=== PATIENT | female | born 1950 ===

== ENCOUNTER 2020-09-08 08:08 | Inpatient (IN) | payer MEDICARE ==
[~2020-09-08] VITALS: Ht 160 cm; Wt 53.5 kg
[2020-09-08] VITALS (19 sets, daily range): BP systolic 86–134; BP diastolic 50–88
--- NOTE | 2020-09-08 09:36 | NUR ---
ARRIVAL PT ARRIVED TO ROOM 314 VIA BED, NO S/S OF DISTRESS NOTED. AT BEDSIDE. REPORT RECEIVED FROM NICOLE LOWE. ASSUMED CARE OF PT.
[2020-09-08] MEDS ORDERED: MORPHINE SULFATE IV PRN ×2 (10:30→16:30)
[2020-09-08] MEDS ORDERED: VENTOLIN IH PRN (10:30)
[2020-09-08] MEDS ORDERED: NORCO 5MG PO PRN (10:30)
[2020-09-08] MEDS ORDERED: ATROVENT IH PRN (10:30)
--- NOTE | 2020-09-08 10:52 | PCM.HP ---
History of Present Illness Reason for Visit: Hip fracture History of Present Illness 70-year-old female with past medical history of asthma, delusional disorder is being transferred from [facility] unit she fell. Imaging studies showed hip fracture. Patient is not on any blood thinners. No head trauma. Patient transferred to medical/surgical floor. Orthopedic been consulted. Patient denies chest pain, abdominal pain, nausea vomiting. Past Medical History Pulmonary: Asthma Psychiatric: Other (Delusional disorder) Past Surgical History: No pertinent hx Past Social History Smoke: No Alcohol: none Travel Hx EBOLA RISK:Travel to/contact w: No Review of Systems Constitutional: No: Fever, Chills Eyes: No: Pain, Vision change ENT: No: Ear pain, Ear discharge Respiratory: No: Cough, Dry, Shortness of breath Cardiovascular: No: Chest Pain, Palpitations Gastrointestinal: No: Nausea, Vomiting Genitourinary: No Dysuria, No Frequency Musculoskeletal: other (Hip pain) Skin: No: Jaundice Neurological: Weakness, Confusion, Other; No: Change in speech Allergies: Coded Allergies: banana (Verified Allergy, Unknown, 09/07/20) ciprofloxacin (Verified Allergy, Unknown, 09/07/20) wheat (Verified Allergy, Unknown, 09/07/20) No Active Prescriptions or Reported Meds VTE VTE Risk Score VTE Risk: Score 0-1 = Low Risk (Aggressive mobilization; early ambulation; no VTE prophylaxis required) Score 2: Moderate Risk (Intermittent/Pneumatic Compression Device OR Lovenox/Heparin/Coumadin) Score 3-4: High Risk (Intermittent/Pneumatic Compression Device AND Lovenox/Heparin/Coumadin) Score > or =5: Highest Risk (Intermittent/Pneumatic Compression Device AND Lovenox/Heparin/Coumadin) Mechanical device ordered: Yes Exam Vital Signs Blood pressure under 120/70, heart rate 80, respiratory 14, temperature General Appearance: Alert, mild distress HEENT: Atraumatic, PERRLA Respiratory: Clear to auscultation Cardiovascular: Regular rate, Normal S1, Normal S2 Abdominal: Normal bowel sounds, Soft, No tenderness Extremities: No clubbing, No cyanosis, Other (Hip tenderness) Skin: No rash, No lesions Neuro: Normal speech, Normal tone Psych/Mental Status: Other (Unable to assess) Assessment/Plan Assessment/Plan Problems: (1) Hip fracture ICD Code: S72.009A - Fracture of unspecified part of neck of unspecified femur, initial encounter for closed fracture SNOMED: 442898276 (2) Asthma Status: Chronic ICD Code: J45.909 - Unspecified asthma, uncomplicated SNOMED: 447545606 (3) Delusional disorder Status: Chronic ICD Code: F22 - Delusional disorders SNOMED: 70745279 Plan 70-year-old female with past medical history of asthma, delusional disorder is being transferred from [facility] she fell. Imaging studies showed hip fracture. Patient is not on any blood thinners. No head trauma. Patient transferred to medical/surgical floor. Orthopedic been consulted. Patient denies chest pain, abdominal pain, nausea vomiting. Plan Admit Orthopedic consulted for further management We will get basic labs, EKG and chest x-ray. Pain management with close monitoring of vital signs and pulse ox Patient has chronic asthma which appears stable We will continue home meds DVT prophylaxis SCDs, further prophylaxis as per Ortho Case discussed with patient and patient family Expect length of stay more than 2 midnights ELLIS RENO MD Sep 08, 2020 10:52
[2020-09-08 11:02] LABS: BASOPHIL % 0.3 % (0.0-0.2); LYMPHOCYTES # 0.61 10^3/uL1 (1.0-4.8); LYMPHOCYTES % 8.3 % (24.0-44.0); MEAN CORP HGB 31.7 pg (26-34); MONOCYTES # 0.6 10^3/uL (0.3-0.8); MONOCYTES % 8.2 % (5.0-12.0); NEUTROPHIL # 6.1 10^3/uL (1.8-7.7); NEUTROPHILS % 83.2 % (41.0-85.0); PLATELET COUNT 186 10^3/uL (150-400); RED CELL DISTRIBUTION WIDTH 13.5 % (11.5-14.5)
[2020-09-08] MEDS ORDERED: DUO 0.5-3(2.5) MG/3 ML IH PRN (11:02)
--- NOTE | 2020-09-08 11:15 | NUR ---
SURGERY CONSENT FORM SIGNED BY , PT OFF OF FLOOR VIA BED TO GO TO SURGERY. REPORT GIVEN TO ROME ARREDONDO RN.
[2020-09-08 11:23] LABS: CALCIUM 8.8 mg/dL (8.4-10.5); CARBON DIOXIDE 23.8 mmol/L (20.0-32)
--- NOTE | 2020-09-08 11:23 | PCM.EKG ---
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
[2020-09-08] MEDS ORDERED: MORPHINE SULFATE ONE ×2 (11:34→12:12)
[2020-09-08] MEDS: D5W-1/2NS 1000ML 1,000 ML IV SCH ×2 (11:35→20:30)
[2020-09-08] MEDS ORDERED: NS 3000ML IRR IR ONE (12:07)
[2020-09-08] MEDS ORDERED: WATER ONE (12:07)
[2020-09-08] MEDS ORDERED: SODIUM CHLORIDE IRR BOTTLE IR ONE (12:07)
[2020-09-08] MEDS ORDERED: NS 250ML 250 ML ONE (12:07)
[2020-09-08] MEDS ORDERED: ZOFRAN ONE (12:10)
[2020-09-08] MEDS ORDERED: LIDOCAINE 2% VIAL ONE (12:10)
[2020-09-08] MEDS ORDERED: DECADRON ONE (12:11)
[2020-09-08] MEDS ORDERED: ROCURONIUM BROMIDE IV ONE (12:12)
[2020-09-08] MEDS ORDERED: QUELICIN ONE (12:12)
[2020-09-08] MEDS ORDERED: SENSORCAINE-MPF 0.25% VIAL ONE (12:13)
[2020-09-08] MEDS ORDERED: DIPRIVAN IV ONE (12:13)
[2020-09-08] MEDS ORDERED: SUBLIMAZE ONE (12:13)
[2020-09-08] MEDS ORDERED: TRANEXAMIC ACID ONE (12:14)
[2020-09-08] MEDS ORDERED: NS 1000ML 1,000 ML ONE (12:43)
[2020-09-08] MEDS ORDERED: LACTATED RINGERS 1,000 ML ONE (12:44)
[2020-09-08] MEDS ORDERED: NS 100ML 100 ML IV ONE (13:42)
[2020-09-08] MEDS ORDERED: ANCEF ONE (13:43)
--- NOTE | 2020-09-08 14:10 | DIREP ---
PROCEDURE:CHEST 1 VIEW COMPARISON:None. INDICATIONS:sob FINDINGS: LUNGS/PLEURA:No focal consolidation, pleural effusion or pneumothorax. VASCULATURE:Normal. Unremarkable pulmonary vasculature. CARDIAC:Normal. No cardiac silhouette abnormality or cardiomegaly. MEDIASTINUM:Normal. No visible mass or adenopathy. BONES:Thoracic spondylosis. OTHER:Negative. CONCLUSION:No active cardiopulmonary process demonstrated. Dictated by: Tyler Morales M.D. on 09/08/2020 at 02:08 PM
[2020-09-08] MEDS ORDERED: LACTATED RINGERS 1,000 ML IV SCH (16:30)
[2020-09-08] MEDS ORDERED: ZOFRAN IV PRN (16:30)
[2020-09-08] MEDS ORDERED: ULTRAM PO PRN ×2 (16:30)
[2020-09-08] MEDS ORDERED: CEPACOL SORE THROAT LOZENGE MM PRN (16:30)
[2020-09-08] MEDS: TYLENOL PO SCH (18:00)
--- NOTE | 2020-09-08 19:38 | OPH ---
DATE OF SURGERY: 09/08/2020 DICTATOR NAME: Marc Bowers MD PREOPERATIVE DIAGNOSIS: Displaced left femoral neck fracture. POSTOPERATIVE DIAGNOSIS: Displaced left femoral neck fracture. OPERATIVE PROCEDURE: Bipolar arthroplasty of the left hip using Medacta AMIS, component size 3, cemented femoral stem. The bipolar cup was a 43. The head was a 22 mm cobalt chrome head, neutral neck length. SURGEON: Marc Bowers MD ANESTHESIA: Spinal. TOURNIQUET TIME: None. BLOOD LOSS: 300 mL. DESCRIPTION OF INDICATIONS: The patient is a 70-year-old female, household ambulator with a walker for balance, fell in the [facility] unit last night and suffered a displaced left femoral neck fracture. The patient was taken to the operating room for the above procedure. DESCRIPTION OF PROCEDURE: The patient was given a spinal anesthetic, then placed in the operating table in the supine position. The left foot and ankle were well padded with cast padding and then placed in the traction boot, which was padded with a piece of egg crate mattress. The patient then had the left lower extremity sterilely prepped and draped. The patient had an anterior incision made about the hip. The incision was taken through the skin and the subcutaneous tissues. The bleeding was controlled with cautery. The tensor fascia was opened and the muscle belly was retracted posteriorly. The rectus fascia was opened and the rectus muscle was retracted medially. The circumflex vessels were identified, coagulated with the Aquamantys device. The fat pad over the capsule was excised. Capsular incision was made and the capsule was retracted proximally and laterally. The femoral neck cut was made proximal to the fracture. The femoral head was removed with a corkscrew device. The labrum was excised. The patient had the acetabulum trialled and a size 43 bipolar cup had a good fit. The patient then had the hip placed in maximal external rotation and hyperextension after the posterior ligaments were released. The canal was opened with a box chisel and subsequently with a rasp. The canal was sequentially rasped up to a size 3. Trial reduction was done with a size 3 femoral component and initially a -3.5 neck length and then finally a neutral neck length. The hip was reduced. There was good stability clinically and radiographically, the sizing of the components appeared appropriate and the leg length appeared appropriate. Trial components were removed. The canal was cleared with a brush. The cement restrictor was placed at 13 cm below the femoral neck cut. The canal was then irrigated with the irrigating brush and then the tampon device was used to dry the canal. The cement was introduced and pressure packed. The stem was then cemented into position, a size 3 cemented, AMIS stem. The excess cement was removed. Once the cement had hardened, then we impacted the neutral neck length, 22 mm head with the 43 bipolar cup onto the Foster taper neck. The hip was reduced. Again, there was good stability clinically and radiographically, the leg lengths appeared appropriate and the sizing and the alignment of the components appeared satisfactory. The patient then had the wounds irrigated with Betadine-containing solution for 3 minutes. The capsule was closed with #2 PDS in an interrupted manner. The tensor fascia was closed with a barbed #2 PDS in a running manner. The subcutaneous was closed with a barbed 2-0 Monocryl in a running manner and the skin was closed with susan. A Prevena suction type dressing was applied and the patient was sent to recovery in stable condition. Marc Bowers MD DR: KATHY/ISHMAEL/CRISTOPHER TID: [id number] RECEIPT: [id number]
[2020-09-08 20:45] LABS: MEAN CORP HGB 31.6 pg (26-34); RED CELL DISTRIBUTION WIDTH 13.5 % (11.5-14.5)
[2020-09-08] MEDS: ANCEF 2 GM/D5W 50ML IV SCH (22:36)
--- NOTE | 2020-09-08 22:49 | DIREP ---
PROCEDURE:XRAY ELBOW 2VWS-LT COMPARISON:None. INDICATIONS:POST FALL FINDINGS: BONES:Faint lucency suggested the distal humeral metaphysis concerning for nondisplaced fracture. JOINTS:Suboptimal lateral view given rotation. Displaced anterior fat pad consistent with effusion. SOFT TISSUES:Soft tissue swelling noted over the radial and dorsal elbow. OTHER:IV apparatus in the antecubital region. CONCLUSION: 1. Nondisplaced distal humerus fracture suspected. 2. Joint effusion and soft tissue swelling. Dictated by: Tyler Morales M.D. on 09/08/2020 at 10:45 PM
[2020-09-09] MEDS ORDERED: NS 500ML 500 ML IV SCH (01:10)
--- NOTE | 2020-09-09 01:10 | NUR ---
B/P PATIENTS BP 74/43. DR. CORRAL NOTIFIED. RECEIVED ORDERS FOR ONE TIME BOLUS OF 500 NS.
[2020-09-09] MEDS ORDERED: NS 500ML 500 ML IV ONE (01:11)
[2020-09-09 01:30] VITALS: BP 81/48
[2020-09-09 05:02] LABS: BASOPHIL % 0.2 % (0.0-0.2); LYMPHOCYTES # 0.51 10^3/uL1 (1.0-4.8); LYMPHOCYTES % 8.1 % (24.0-44.0); MEAN CORP HGB 31.4 pg (26-34); MONOCYTES # 0.6 10^3/uL (0.3-0.8); MONOCYTES % 9.3 % (5.0-12.0); NEUTROPHIL # 5.2 10^3/uL (1.8-7.7); NEUTROPHILS % 82.4 % (41.0-85.0); PLATELET COUNT 120 10^3/uL (150-400); RED CELL DISTRIBUTION WIDTH 13.5 % (11.5-14.5)
[2020-09-09 05:17] LABS: CARBON DIOXIDE 27.4 mmol/L (20.0-32)
[2020-09-09] MEDS: ANCEF 2 GM/D5W 50ML IV SCH ×2 (05:22→16:47)
[2020-09-09] MEDS: TYLENOL PO SCH ×4 (05:26→17:28)
[2020-09-09 06:01] VITALS: BP 97/61
[2020-09-09] MEDS: D5W-1/2NS 1000ML 1,000 ML IV SCH ×2 (06:07→16:47)
[2020-09-09 07:51] VITALS: BP 136/76
--- NOTE | 2020-09-09 08:24 | DIREP ---
PROCEDURE:XRAY HIP MIN 2VW-LT COMPARISON:[facility], , XRAY HIP MIN 2VW-LT, 09/07/2020, 11:15 PM. INDICATIONS:BIPOLAR FINDINGS: BONES:No acute fracture. JOINTS:Left hip arthroplasty appears intact and appropriately aligned. Mild degenerative changes of the right hip. SOFT TISSUES:Soft tissue edema and emphysema about the left hip would be consistent with recent operative intervention, as evidenced by skin susan and apparent surgical drain. OTHER:Degenerative changes of the spine. CONCLUSION: 1. Postoperative changes of interval left hip arthroplasty. No suspicious abnormality. Dictated by: Dewey Bravo M.D. On 09/09/2020 at 08:21 AM
--- NOTE | 2020-09-09 09:55 | PRM.PN ---
Subjective Subjective Date: Sep 09, 2020 Time: 09:53 Subjective Pt comfortable in bed VSS HGB 19 postop anemia secondary to acute surgical blood loss expected Xrays show nondisplaced distal humerus fx on left Will place in long arm cast Start PT VTE VTE Risk Total Score: 5 VTE Risk Score VTE Risk: Score 0-1 = Low Risk (Aggressive mobilization; early ambulation; no VTE prophylaxis required) Score 2: Moderate Risk (Intermittent/Pneumatic Compression Device OR Lovenox/Heparin/Coumadin) Score 3-4: High Risk (Intermittent/Pneumatic Compression Device AND Lovenox/Heparin/Coumadin) Score > or =5: Highest Risk (Intermittent/Pneumatic Compression Device AND Lovenox/Heparin/Coumadin) Mechanical device ordered: Yes Review of Systems Constitutional: No: Fever, Chills Eyes: No: Pain, Vision change ENT: No: Ear pain, Ear discharge Respiratory: No: Cough, Dry, Shortness of breath Cardiovascular: No: Chest Pain, Palpitations Gastrointestinal: No: Nausea, Vomiting Genitourinary: No Dysuria, No Frequency Musculoskeletal: other (Hip pain) Skin: No: Jaundice Neurological: Weakness, Confusion, Other; No: Change in speech Allergies: Coded Allergies: banana (Verified Allergy, Unknown, 09/07/20) ciprofloxacin (Verified Allergy, Unknown, 09/07/20) wheat (Verified Allergy, Unknown, 09/07/20) No Active Prescriptions or Reported Meds Objective Vitals and I/O Vital Sign - Last 24 Hours 09/08/20 09/08/20 09/08/20 09/08/20 12:11 13:15 13:27 13:35 Pulse 90 104 89 Resp 16 16 16 B/P (MAP) 131/78 (95) 134/78 (96) 117/73 (88) Pulse Ox 99 99 99 O2 Delivery Room Air Nasal [place] Nasal [place] Nasal [place] O2 Flow Rate 2 2 2 09/08/20 09/08/20 09/08/20 09/08/20 16:21 16:27 16:32 16:37 Temp 97.5 Pulse 69 71 69 67 Resp 15 15 15 15 B/P (MAP) 118/71 (87) 104/63 (77) 93/60 (71) 90/56 (67) Pulse Ox 95 98 95 93 O2 Delivery Room Air Room Air Room Air Room Air 09/08/20 09/08/20 09/08/20 09/08/20 16:42 16:47 16:52 16:57 Pulse 74 75 66 70 Resp 15 15 15 16 B/P (MAP) 99/61 (74) 100/58 (72) 100/58 (72) 102/61 (75) Pulse Ox 96 93 92 97 O2 Delivery Room Air Room Air Room Air Nasal [place] O2 Flow Rate 4 09/08/20 09/08/20 09/08/20 09/08/20 17:02 17:07 17:12 17:17 Pulse 68 67 67 73 Resp 16 16 16 16 B/P (MAP) 112/59 (76) 104/88 (93) 96/60 (72) 100/59 (73) Pulse Ox 97 100 99 99 O2 Delivery Nasal [place] Nasal [place] Nasal [place] Nasal [place] O2 Flow Rate 4 2 2 2 09/08/20 09/08/20 09/08/20 09/08/20 17:22 17:27 17:55 17:55 Temp 97.3 97.9 Pulse 71 66 64 Resp 16 16 16 B/P (MAP) 102/67 (79) 105/64 (78) 95/58 (70) Pulse Ox 100 99 100 O2 Delivery Nasal [place] Nasal [place] O2 Flow Rate 2 2 2 09/08/20 09/08/20 09/08/20 09/08/20 17:55 18:36 20:21 21:00 Temp 97.9 96.3 Pulse 64 89 75 Resp 16 16 15 B/P (MAP) 95/58 (70) 86/50 (62) Pulse Ox 100 99 100 O2 Delivery Nasal [place] Room Air Nasal [place] O2 Flow Rate 2 2.00 2.00 FiO2 28 09/09/20 09/09/20 09/09/20 01:30 06:01 07:51 Temp 96.1 97.9 97.5 Pulse 62 64 57 Resp 16 16 18 B/P (MAP) 81/48 (59) 97/61 (73) 136/76 (96) Pulse Ox 100 100 99 Intake and Output 09/09/20 06:59 Intake Total 6350 ml Output Total 730 ml Balance 5620 ml General: Alert, mild distress HEENT: Atraumatic, PERRLA Lungs: Clear to auscultation Heart: Regular rate, Normal S1, Normal S2 Abdomen: Normal bowel sounds, Soft, No tenderness Extremities: No clubbing, No cyanosis, Other (Hip tenderness) Neuro: Normal speech, Normal tone Psych/Mental Status: Other (Unable to assess) All Results(Lab/Rad) Laboratory Tests Test 09/08/20 10:55 09/08/20 12:30 09/08/20 16:40 09/08/20 20:25 White Blood Count 7.4 10^3/uL 9.9 10^3/uL Red Blood Count 4.10 10^6/uL 3.58 10^6/uL Hemoglobin 13.0 g/dL 11.9 g/dL 11.3 g/dL Hematocrit 39.7 % 39.7 % 35.5 % Mean Corpuscular Volume 96.8 fL 99.2 fL Mean Corpuscular Hemoglobin 31.7 pg 31.6 pg Mean Corpuscular Hemoglobin Concent 32.7 g/dL 31.8 g/dL Red Cell Distribution Width 13.5 % 13.5 % Platelet Count 186 10^3/uL 139 10^3/uL Mean Platelet Volume 9.3 fL 10.8 fL Neutrophils (%) (Auto) 83.2 % Lymphocytes (%) (Auto) 8.3 % Monocytes (%) (Auto) 8.2 % Neutrophils # (Auto) 6.1 10^3/uL Lymphocytes # (Auto) 0.61 10^3/uL1 Monocytes # (Auto) 0.6 10^3/uL Absolute Immature Granulocyte (auto 0.02 10^3 u/L Absolute Eosinophils (auto) 0.0 10^3/uL Immature Granulocytes % 0.30 % Eosinophils % 0.0 % Basophils % 0.3 % Basophils # 0.0 10^3/uL Sodium Level 142 mmol/L Potassium Level 4.2 mmol/L Chloride Level 105.0 mmol/L Carbon Dioxide Level 23.8 mmol/L Anion Gap 17.4 Blood Urea Nitrogen 12 mg/dL Creatinine 0.65 mg/dL Estimated GFR () 108.4 Est GFR (CKD-EPI)(Non-Afr Citizen Of [place]) 89.6 BUN/Creatinine Ratio 18.0 Glucose Level 108 mg/dL Calcium Level 8.8 mg/dL Total Bilirubin 0.8 mg/dL Aspartate Amino Transf (AST/SGOT) 32 U/L Alanine Aminotransferase (ALT/SGPT) 21 U/L Alkaline Phosphatase 76 U/L Total Protein 7.1 g/dL Albumin 3.4 g/dL Globulin 3.7 Albumin/Globulin Ratio 0.918 Prothrombin Time 11.4 SEC Prothrombin Time INR (Non-Therap) 1.1 Activated Partial Thromboplast Time 23.5 SEC Test 09/09/20 04:30 White Blood Count 6.3 10^3/uL Red Blood Count 3.18 10^6/uL Hemoglobin 10.0 g/dL Hematocrit 31.6 % Mean Corpuscular Volume 99.4 fL Mean Corpuscular Hemoglobin 31.4 pg Mean Corpuscular Hemoglobin Concent 31.6 g/dL Red Cell Distribution Width 13.5 % Platelet Count 120 10^3/uL Mean Platelet Volume 10.4 fL Neutrophils (%) (Auto) 82.4 % Lymphocytes (%) (Auto) 8.1 % Monocytes (%) (Auto) 9.3 % Neutrophils # (Auto) 5.2 10^3/uL Lymphocytes # (Auto) 0.51 10^3/uL1 Monocytes # (Auto) 0.6 10^3/uL Absolute Immature Granulocyte (auto 0.01 10^3 u/L Absolute Eosinophils (auto) 0.0 10^3/uL Immature Granulocytes % 0.20 % Eosinophils % 0.0 % Basophils % 0.2 % Basophils # 0.0 10^3/uL Sodium Level 142 mmol/L Potassium Level 4.2 mmol/L Chloride Level 109.0 mmol/L Carbon Dioxide Level 27.4 mmol/L Glucose Level 104 mg/dL Blood Urea Nitrogen 10 mg/dL Creatinine 0.62 mg/dL Calcium Level 8.0 mg/dL Anion Gap 9.8 Estimated GFR () 114.5 Est GFR (CKD-EPI)(Non-Afr Citizen Of [place]) 94.6 BUN/Creatinine Ratio 16.0 Current Medications Medications (Trade) Dose Ordered Sig/Rodolfo Route PRN Reason Start Time Stop Time Status Last Admin Dose Admin Acetaminophen/ Hydrocodone Bitart ([place] 5mg) 1 ea Q4H PRN PO PAIN 4 - 6 09/08/20 10:30 09/08/20 16:46 DC Morphine Sulfate (Morphine Sulfate) 2 mg Q4H PRN IV PAIN 7 - 10 09/08/20 10:30 09/08/20 16:46 DC 09/08/20 11:35 Albuterol Sulfate (Ventolin) 2.5 mg RTQ2 PRN IH SHORTNESS OF BREATH 09/08/20 10:30 09/08/20 11:04 DC Ipratropium [place] (Atrovent) 0.5 mg RTQ2 PRN IH SHORTNESS OF BREATH 09/08/20 10:30 09/08/20 11:02 DC Albuterol/ Ipratropium (Duo 0.5-3(2.5) Mg/3 ml) 3 ml RTQ2 PRN IH SHORTNESS OF BREATH 09/08/20 11:02 10/08/20 10:29 Morphine Sulfate (Morphine Sulfate) 2 mg STK-MED ONCE .ROUTE 09/08/20 11:34 09/08/20 11:34 DC Sodium Chloride (Sodium Chloride Irr Bottle) 1,000 ml STK-MED ONCE IR 09/08/20 12:07 09/08/20 12:07 DC Sterile Water (Water) 1,000 ml STK-MED ONCE .ROUTE 09/08/20 12:07 09/08/20 12:07 DC Sodium Chloride 250 ml @ ud STK-MED ONCE .ROUTE 09/08/20 12:07 09/08/20 12:07 DC Sodium Chloride (NS 3000ml Irr) 3,000 ml STK-MED ONCE IR 09/08/20 12:07 09/08/20 12:07 DC Lidocaine HCl (Lidocaine 2% Vial) 500 mg STK-MED ONCE .ROUTE 09/08/20 12:10 09/08/20 12:10 DC Ondansetron HCl (Zofran) 4 mg STK-MED ONCE .ROUTE 09/08/20 12:10 09/08/20 12:11 DC Morphine Sulfate (Morphine Sulfate) 2 mg STK-MED ONCE .ROUTE 09/08/20 12:12 09/08/20 12:12 DC Rocuronium [place] (Rocuronium [place]) 50 mg STK-MED ONCE IV 09/08/20 12:12 09/08/20 12:12 DC Succinylcholine Chloride (Quelicin) 200 mg STK-MED ONCE .ROUTE 09/08/20 12:12 09/08/20 12:12 DC Fentanyl Citrate (Sublimaze) 50 mcg STK-MED ONCE .ROUTE 09/08/20 12:13 09/08/20 12:13 DC Propofol (Diprivan) 200 mg STK-MED ONCE IV 09/08/20 12:13 09/08/20 12:14 DC Bupivacaine HCl (Sensorcaine-Mpf 0.25% Vial) 2.5 mg STK-MED ONCE .ROUTE 09/08/20 12:13 09/08/20 12:14 DC Tranexamic Acid (Tranexamic Acid) 1,000 mg STK-MED ONCE .ROUTE 09/08/20 12:14 09/08/20 12:14 DC Sodium Chloride 1,000 ml @ ud STK-MED ONCE .ROUTE 09/08/20 12:43 09/08/20 12:43 DC Sodium Chloride 100 ml @ ud STK-MED ONCE IV 09/08/20 13:42 09/08/20 13:43 DC Cefazolin Sodium (Ancef) 1 gm STK-MED ONCE .ROUTE 09/08/20 13:43 09/08/20 13:43 DC Tramadol HCl (Ultram) 50 mg Q6H PRN PO PAIN 4 - 6 09/08/20 16:30 10/08/20 16:29 Tramadol HCl (Ultram) 100 mg Q6H PRN PO PAIN 7 - 10 09/08/20 16:30 10/08/20 16:29 Rivaroxaban (Xarelto) 10 mg DAILY PO 09/09/20 17:00 10/09/20 16:59 Docusate Sodium (Colace) 100 mg DAILY PO 09/09/20 09:00 10/09/20 08:59 Throat Lozenges (Cepacol Sore Throat Lozenge) 1 each PRN PRN MM SORE THROAT 09/08/20 16:30 10/08/20 16:29 Famotidine (Pepcid) 20 mg DAILY PO 09/09/20 09:00 10/09/20 08:59 Cefazolin Sodium/ Dextrose (Ancef 2 Gm/D5W 50ml) 2 gm Q8 IV 09/08/20 22:00 09/09/20 14:01 09/09/20 05:22 Acetaminophen (Tylenol) 1,000 mg Q6HR PO 09/08/20 18:00 10/08/20 17:59 Morphine Sulfate (Morphine Sulfate) 2 mg Q6HR PRN IV PAIN 7 - 10 09/08/20 16:30 10/08/20 16:29 Ondansetron HCl (Zofran) 4 mg Q4H PRN IV NAUSEA / VOMITING 09/08/20 16:30 10/08/20 16:29 Sodium Chloride 500 ml @ ud STK-MED ONCE IV 09/09/20 01:11 09/09/20 01:12 DC Sodium Chloride 500 ml @ 500 mls/hr OT IV 09/09/20 01:10 09/09/20 02:09 DC 09/09/20 01:23 Course Sepsis Screening Results: Posi: POSITIVE Sepsis Qualifier/Stage: SEPSIS RISK Vitals & review Data Vital Sign - Last 24 Hours 09/08/20 09/08/20 09/08/20 09/08/20 12:11 13:15 13:27 13:35 Pulse 90 104 89 Resp 16 16 16 B/P (MAP) 131/78 (95) 134/78 (96) 117/73 (88) Pulse Ox 99 99 99 O2 Delivery Room Air Nasal [place] Nasal [place] Nasal [place] O2 Flow Rate 2 2 2 09/08/20 09/08/20 09/08/20 09/08/20 16:21 16:27 16:32 16:37 Temp 97.5 Pulse 69 71 69 67 Resp 15 15 15 15 B/P (MAP) 118/71 (87) 104/63 (77) 93/60 (71) 90/56 (67) Pulse Ox 95 98 95 93 O2 Delivery Room Air Room Air Room Air Room Air 09/08/20 09/08/20 09/08/20 09/08/20 16:42 16:47 16:52 16:57 Pulse 74 75 66 70 Resp 15 15 15 16 B/P (MAP) 99/61 (74) 100/58 (72) 100/58 (72) 102/61 (75) Pulse Ox 96 93 92 97 O2 Delivery Room Air Room Air Room Air Nasal [place] O2 Flow Rate 4 09/08/20 09/08/20 09/08/20 09/08/20 17:02 17:07 17:12 17:17 Pulse 68 67 67 73 Resp 16 16 16 16 B/P (MAP) 112/59 (76) 104/88 (93) 96/60 (72) 100/59 (73) Pulse Ox 97 100 99 99 O2 Delivery Nasal [place] Nasal [place] Nasal [place] Nasal [place] O2 Flow Rate 4 2 2 2 09/08/20 09/08/20 09/08/20 09/08/20 17:22 17:27 17:55 17:55 Temp 97.3 97.9 Pulse 71 66 64 Resp 16 16 16 B/P (MAP) 102/67 (79) 105/64 (78) 95/58 (70) Pulse Ox 100 99 100 O2 Delivery Nasal [place] Nasal [place] O2 Flow Rate 2 2 2 09/08/20 09/08/20 09/08/20 09/08/20 17:55 18:36 20:21 21:00 Temp 97.9 96.3 Pulse 64 89 75 Resp 16 16 15 B/P (MAP) 95/58 (70) 86/50 (62) Pulse Ox 100 99 100 O2 Delivery Nasal [place] Room Air Nasal [place] O2 Flow Rate 2 2.00 2.00 FiO2 09/09/20 09/09/20 09/09/20 01:30 06:01 07:51 Temp 96.1 97.9 97.5 Pulse 62 64 57 Resp 16 16 18 B/P (MAP) 81/48 (59) 97/61 (73) 136/76 (96) Pulse Ox 100 100 99 Intake and Output 09/09/20 06:59 Intake Total 6350 ml Output Total 730 ml Balance 5620 ml Laboratory Tests Test 09/08/20 10:55 09/08/20 12:30 09/08/20 16:40 09/08/20 20:25 White Blood Count 7.4 10^3/uL 9.9 10^3/uL Red Blood Count 4.10 10^6/uL 3.58 10^6/uL Hemoglobin 13.0 g/dL 11.9 g/dL 11.3 g/dL Hematocrit 39.7 % 39.7 % 35.5 % Mean Corpuscular Volume 96.8 fL 99.2 fL Mean Corpuscular Hemoglobin 31.7 pg 31.6 pg Mean Corpuscular Hemoglobin Concent 32.7 g/dL 31.8 g/dL Red Cell Distribution Width 13.5 % 13.5 % Platelet Count 186 10^3/uL 139 10^3/uL Mean Platelet Volume 9.3 fL 10.8 fL Neutrophils (%) (Auto) 83.2 % Lymphocytes (%) (Auto) 8.3 % Monocytes (%) (Auto) 8.2 % Neutrophils # (Auto) 6.1 10^3/uL Lymphocytes # (Auto) 0.61 10^3/uL1 Monocytes # (Auto) 0.6 10^3/uL Absolute Immature Granulocyte (auto 0.02 10^3 u/L Absolute Eosinophils (auto) 0.0 10^3/uL Immature Granulocytes % 0.30 % Eosinophils % 0.0 % Basophils % 0.3 % Basophils # 0.0 10^3/uL Sodium Level 142 mmol/L Potassium Level 4.2 mmol/L Chloride Level 105.0 mmol/L Carbon Dioxide Level 23.8 mmol/L Anion Gap 17.4 Blood Urea Nitrogen 12 mg/dL Creatinine 0.65 mg/dL Estimated GFR () 108.4 Est GFR (CKD-EPI)(Non-Afr Citizen Of [place]) 89.6 BUN/Creatinine Ratio 18.0 Glucose Level 108 mg/dL Calcium Level 8.8 mg/dL Total Bilirubin 0.8 mg/dL Aspartate Amino Transf (AST/SGOT) 32 U/L Alanine Aminotransferase (ALT/SGPT) 21 U/L Alkaline Phosphatase 76 U/L Total Protein 7.1 g/dL Albumin 3.4 g/dL Globulin 3.7 Albumin/Globulin Ratio 0.918 Prothrombin Time 11.4 SEC Prothrombin Time INR (Non-Therap) 1.1 Activated Partial Thromboplast Time 23.5 SEC Test 09/09/20 04:30 White Blood Count 6.3 10^3/uL Red Blood Count 3.18 10^6/uL Hemoglobin 10.0 g/dL Hematocrit 31.6 % Mean Corpuscular Volume 99.4 fL Mean Corpuscular Hemoglobin 31.4 pg Mean Corpuscular Hemoglobin Concent 31.6 g/dL Red Cell Distribution Width 13.5 % Platelet Count 120 10^3/uL Mean Platelet Volume 10.4 fL Neutrophils (%) (Auto) 82.4 % Lymphocytes (%) (Auto) 8.1 % Monocytes (%) (Auto) 9.3 % Neutrophils # (Auto) 5.2 10^3/uL Lymphocytes # (Auto) 0.51 10^3/uL1 Monocytes # (Auto) 0.6 10^3/uL Absolute Immature Granulocyte (auto 0.01 10^3 u/L Absolute Eosinophils (auto) 0.0 10^3/uL Immature Granulocytes % 0.20 % Eosinophils % 0.0 % Basophils % 0.2 % Basophils # 0.0 10^3/uL Sodium Level 142 mmol/L Potassium Level 4.2 mmol/L Chloride Level 109.0 mmol/L Carbon Dioxide Level 27.4 mmol/L Glucose Level 104 mg/dL Blood Urea Nitrogen 10 mg/dL Creatinine 0.62 mg/dL Calcium Level 8.0 mg/dL Anion Gap 9.8 Estimated GFR () 114.5 Est GFR (CKD-EPI)(Non-Afr Citizen Of [place]) 94.6 BUN/Creatinine Ratio 16.0 Current Medications Medications (Trade) Dose Ordered Sig/Rodolfo PRN Reason Start Time Stop Time Status Last Admin Acetaminophen (Tylenol) 1,000 mg Q6HR 09/08/20 18:00 10/08/20 17:59 Albuterol/ Ipratropium (Duo 0.5-3(2.5) Mg/3 ml) 3 ml RTQ2 PRN SHORTNESS OF BREATH 09/08/20 11:02 10/08/20 10:29 Cefazolin Sodium/ Dextrose (Ancef 2 Gm/D5W 50ml) 2 gm Q8 09/08/20 22:00 09/09/20 14:01 09/09/20 05:22 Docusate Sodium (Colace) 100 mg DAILY 09/09/20 09:00 10/09/20 08:59 Famotidine (Pepcid) 20 mg DAILY 09/09/20 09:00 10/09/20 08:59 Morphine Sulfate (Morphine Sulfate) 2 mg Q6HR PRN PAIN 7 - 10 09/08/20 16:30 10/08/20 16:29 Ondansetron HCl (Zofran) 4 mg Q4H PRN NAUSEA / VOMITING 09/08/20 16:30 10/08/20 16:29 Rivaroxaban (Xarelto) 10 mg DAILY 09/09/20 17:00 10/09/20 16:59 Throat Lozenges (Cepacol Sore Throat Lozenge) 1 each PRN PRN SORE THROAT 09/08/20 16:30 10/08/20 16:29 Tramadol HCl (Ultram) 50 mg Q6H PRN PAIN 4 - 6 09/08/20 16:30 10/08/20 16:29 Tramadol HCl (Ultram) 100 mg Q6H PRN PAIN 7 - 10 09/08/20 16:30 10/08/20 16:29 LEVEL 1 SEPSIS INFECTION CRITE: Recent Invasive Procedure Cardiovascular Evidence: Not Assessed or None Hematologic Evidence: None/Not assessed Hepatic Evidence: None/Not assessed Metabolic Evidence: None/Not assessed Neurological Evidence: Altered Mental Status Respiratory Evidence: None/Not assessed Renal Evidence: None/Not assessed O2 Sat by Pulse Oximetry: 99 Oxygen Flow Rate: 2.00 Assessment/Plan Assessment/Plan Assessment/Plan 70-year-old female with past medical history of asthma, delusional disorder is being transferred from [facility] unit she fell. Imaging studies showed hip fracture. Patient is not on any blood thinners. No head trauma. Patient transferred to medical/surgical floor. Orthopedic been consulted. Patient denies chest pain, abdominal pain, nausea vomiting. Plan Admit Orthopedic consulted for further management We will get basic labs, EKG and chest x-ray. Pain management with close monitoring of vital signs and pulse ox Patient has chronic asthma which appears stable We will continue home meds DVT prophylaxis SCDs, further prophylaxis as per Ortho Case discussed with patient and patient family Expect length of stay more than 2 midnights Plan 70-year-old female with past medical history of asthma, delusional disorder is being transferred from [facility] unit she fell. Imaging studies showed hip fracture. Patient is not on any blood thinners. No head trauma. Patient transferred to medical/surgical floor. Orthopedic been consulted. Patient denies chest pain, abdominal pain, nausea vomiting. Plan Admit Orthopedic consulted for further management We will get basic labs, EKG and chest x-ray. Pain management with close monitoring of vital signs and pulse ox Patient has chronic asthma which appears stable We will continue home meds DVT prophylaxis SCDs, further prophylaxis as per Ortho Case discussed with patient and patient family Expect length of stay more than 2 midnights MEAGAN DAMON MD Sep 09, 2020 09:55
[2020-09-09] MEDS: COLACE PO SCH (10:45)
[2020-09-09] MEDS: PEPCID PO SCH (10:45)
--- NOTE | 2020-09-09 12:20 | PRM.PN ---
Subjective Subjective Date: Sep 09, 2020 Time: 09:00 Subjective Patient in bed, postoperative pain, tolerable. Blood pressure last night dropped but responded to IV fluid bolus.Patient family at the bedside. VTE VTE Risk Total Score: 5 VTE Risk Score VTE Risk: Score 0-1 = Low Risk (Aggressive mobilization; early ambulation; no VTE prophylaxis required) Score 2: Moderate Risk (Intermittent/Pneumatic Compression Device OR Lovenox/Heparin/Coumadin) Score 3-4: High Risk (Intermittent/Pneumatic Compression Device AND Lovenox/Heparin/Coumadin) Score > or =5: Highest Risk (Intermittent/Pneumatic Compression Device AND Lovenox/Heparin/Coumadin) Antico:Hep/LMWH/Coum/Xarelto: Yes Mechanical device ordered: Yes Review of Systems Constitutional: No: Fever, Chills Eyes: No: Pain, Vision change ENT: No: Ear pain, Ear discharge Respiratory: No: Cough, Dry, Shortness of breath Cardiovascular: No: Chest Pain, Palpitations Gastrointestinal: No: Nausea, Vomiting Genitourinary: No Dysuria, No Frequency Musculoskeletal: other (Hip pain) Skin: No: Jaundice Neurological: Weakness, Confusion, Other; No: Change in speech Allergies: Coded Allergies: banana (Verified Allergy, Unknown, 09/07/20) ciprofloxacin (Verified Allergy, Unknown, 09/07/20) wheat (Verified Allergy, Unknown, 09/07/20) No Active Prescriptions or Reported Meds Objective Vitals and I/O Vital Sign - Last 24 Hours 09/08/20 09/08/20 09/08/20 09/08/20 13:15 13:27 13:35 16:21 Temp 97.5 Pulse 90 104 89 69 Resp 16 16 16 15 B/P (MAP) 131/78 (95) 134/78 (96) 117/73 (88) 118/71 (87) Pulse Ox 99 99 99 95 O2 Delivery Nasal Canula Nasal Canula Nasal Canula Room Air O2 Flow Rate 2 2 2 09/08/20 09/08/20 09/08/20 09/08/20 16:27 16:32 16:37 16:42 Pulse 71 69 67 74 Resp 15 15 15 15 B/P (MAP) 104/63 (77) 93/60 (71) 90/56 (67) 99/61 (74) Pulse Ox 98 95 93 96 O2 Delivery Room Air Room Air Room Air Room Air 09/08/20 09/08/20 09/08/20 09/08/20 16:47 16:52 16:57 17:02 Pulse 75 66 70 68 Resp 15 15 16 16 B/P (MAP) 100/58 (72) 100/58 (72) 102/61 (75) 112/59 (76) Pulse Ox 93 92 97 97 O2 Delivery Room Air Room Air Nasal [place] Nasal [place] O2 Flow Rate 4 4 09/08/20 09/08/20 09/08/20 09/08/20 17:07 17:12 17:17 17:22 Pulse 67 67 73 71 Resp 16 16 16 16 B/P (MAP) 104/88 (93) 96/60 (72) 100/59 (73) 102/67 (79) Pulse Ox 100 99 99 100 O2 Delivery Nasal [place] Nasal [place]ula Nasal Canula Nasal Canula O2 Flow Rate 2 2 2 2 09/08/20 09/08/20 09/08/20 09/08/20 17:27 17:55 17:55 17:55 Temp 97.3 97.9 97.9 Pulse 66 64 64 Resp 16 16 16 B/P (MAP) 105/64 (78) 95/58 (70) 95/58 (70) Pulse Ox 99 100 100 O2 Delivery Nasal [place] Nasal [place] O2 Flow Rate 2 2 2 09/08/20 09/08/20 09/08/20 09/09/20 18:36 20:21 21:00 01:30 Temp 96.3 96.1 Pulse 89 75 62 Resp 16 15 16 B/P (MAP) 86/50 (62) 81/48 (59) Pulse Ox 99 100 100 O2 Delivery Room Air Nasal Cannula O2 Flow Rate 2.00 2.00 FiO2 28 09/09/20 09/09/20 09/09/20 09/09/20 06:01 07:51 10:24 11:34 Temp 97.9 97.5 Pulse 64 57 89 Resp 16 18 16 B/P (MAP) 97/61 (73) 136/76 (96) Pulse Ox 100 99 99 O2 Delivery Nasal Cannula Nasal Cannula O2 Flow Rate 2.00 2.00 FiO2 28 Intake and Output 09/09/20 07:00 Intake Total 6350 ml Output Total 730 ml Balance 5620 ml General: Alert, mild distress HEENT: Atraumatic, PERRLA Lungs: Clear to auscultation Heart: Regular rate, Normal S1, Normal S2 Abdomen: Normal bowel sounds, Soft, No tenderness Extremities: No clubbing, No cyanosis, Other (Hip tenderness) Skin: Other (Postoperative hip) Neuro: Normal speech, Normal tone Psych/Mental Status: Other (Unable to assess) All Results(Lab/Rad) Laboratory Tests Test 09/08/20 10:55 09/08/20 12:30 09/08/20 16:40 09/08/20 20:25 White Blood Count 7.4 10^3/uL 9.9 10^3/uL Red Blood Count 4.10 10^6/uL 3.58 10^6/uL Hemoglobin 13.0 g/dL 11.9 g/dL 11.3 g/dL Hematocrit 39.7 % 39.7 % 35.5 % Mean Corpuscular Volume 96.8 fL 99.2 fL Mean Corpuscular Hemoglobin 31.7 pg 31.6 pg Mean Corpuscular Hemoglobin Concent 32.7 g/dL 31.8 g/dL Red Cell Distribution Width 13.5 % 13.5 % Platelet Count 186 10^3/uL 139 10^3/uL Mean Platelet Volume 9.3 fL 10.8 fL Neutrophils (%) (Auto) 83.2 % Lymphocytes (%) (Auto) 8.3 % Monocytes (%) (Auto) 8.2 % Neutrophils # (Auto) 6.1 10^3/uL Lymphocytes # (Auto) 0.61 10^3/uL1 Monocytes # (Auto) 0.6 10^3/uL Absolute Immature Granulocyte (auto 0.02 10^3 u/L Absolute Eosinophils (auto) 0.0 10^3/uL Immature Granulocytes % 0.30 % Eosinophils % 0.0 % Basophils % 0.3 % Basophils # 0.0 10^3/uL Sodium Level 142 mmol/L Potassium Level 4.2 mmol/L Chloride Level 105.0 mmol/L Carbon Dioxide Level 23.8 mmol/L Anion Gap 17.4 Blood Urea Nitrogen 12 mg/dL Creatinine 0.65 mg/dL Estimated GFR () 108.4 Est GFR (CKD-EPI)(Non-Afr Dutch) 89.6 BUN/Creatinine Ratio 18.0 Glucose Level 108 mg/dL Calcium Level 8.8 mg/dL Total Bilirubin 0.8 mg/dL Aspartate Amino Transf (AST/SGOT) 32 U/L Alanine Aminotransferase (ALT/SGPT) 21 U/L Alkaline Phosphatase 76 U/L Total Protein 7.1 g/dL Albumin 3.4 g/dL Globulin 3.7 Albumin/Globulin Ratio 0.918 Prothrombin Time 11.4 SEC Prothrombin Time INR (Non-Therap) 1.1 Activated Partial Thromboplast Time 23.5 SEC Test 09/09/20 04:30 White Blood Count 6.3 10^3/uL Red Blood Count 3.18 10^6/uL Hemoglobin 10.0 g/dL Hematocrit 31.6 % Mean Corpuscular Volume 99.4 fL Mean Corpuscular Hemoglobin 31.4 pg Mean Corpuscular Hemoglobin Concent 31.6 g/dL Red Cell Distribution Width 13.5 % Platelet Count 120 10^3/uL Mean Platelet Volume 10.4 fL Neutrophils (%) (Auto) 82.4 % Lymphocytes (%) (Auto) 8.1 % Monocytes (%) (Auto) 9.3 % Neutrophils # (Auto) 5.2 10^3/uL Lymphocytes # (Auto) 0.51 10^3/uL1 Monocytes # (Auto) 0.6 10^3/uL Absolute Immature Granulocyte (auto 0.01 10^3 u/L Absolute Eosinophils (auto) 0.0 10^3/uL Immature Granulocytes % 0.20 % Eosinophils % 0.0 % Basophils % 0.2 % Basophils # 0.0 10^3/uL Sodium Level 142 mmol/L Potassium Level 4.2 mmol/L Chloride Level 109.0 mmol/L Carbon Dioxide Level 27.4 mmol/L Glucose Level 104 mg/dL Blood Urea Nitrogen 10 mg/dL Creatinine 0.62 mg/dL Calcium Level 8.0 mg/dL Anion Gap 9.8 Estimated GFR () 114.5 Est GFR (CKD-EPI)(Non-Afr Dutch) 94.6 BUN/Creatinine Ratio 16.0 Current Medications Medications (Trade) Dose Ordered Sig/Rodolfo Route PRN Reason Start Time Stop Time Status Last Admin Dose Admin Acetaminophen/ Hydrocodone Bitart ([place] 5mg) 1 ea Q4H PRN PO PAIN 4 - 6 09/08/20 10:30 09/08/20 16:46 DC Morphine Sulfate (Morphine Sulfate) 2 mg Q4H PRN IV PAIN 7 - 10 09/08/20 10:30 09/08/20 16:46 DC 09/08/20 11:35 Albuterol Sulfate (Ventolin) 2.5 mg RTQ2 PRN IH SHORTNESS OF BREATH 09/08/20 10:30 09/08/20 11:04 DC Ipratropium [place] (Atrovent) 0.5 mg RTQ2 PRN IH SHORTNESS OF BREATH 09/08/20 10:30 09/08/20 11:02 DC Albuterol/ Ipratropium (Duo 0.5-3(2.5) Mg/3 ml) 3 ml RTQ2 PRN IH SHORTNESS OF BREATH 09/08/20 11:02 10/08/20 10:29 Morphine Sulfate (Morphine Sulfate) 2 mg STK-MED ONCE .ROUTE 09/08/20 11:34 09/08/20 11:34 DC Sodium Chloride (Sodium Chloride Irr Bottle) 1,000 ml STK-MED ONCE IR 09/08/20 12:07 09/08/20 12:07 DC Sterile Water (Water) 1,000 ml STK-MED ONCE .ROUTE 09/08/20 12:07 09/08/20 12:07 DC Sodium Chloride 250 ml @ ud STK-MED ONCE .ROUTE 09/08/20 12:07 09/08/20 12:07 DC Sodium Chloride (NS 3000ml Irr) 3,000 ml STK-MED ONCE IR 09/08/20 12:07 09/08/20 12:07 DC Lidocaine HCl (Lidocaine 2% Vial) 500 mg STK-MED ONCE .ROUTE 09/08/20 12:10 09/08/20 12:10 DC Ondansetron HCl (Zofran) 4 mg STK-MED ONCE .ROUTE 09/08/20 12:10 09/08/20 12:11 DC Morphine Sulfate (Morphine Sulfate) 2 mg STK-MED ONCE .ROUTE 09/08/20 12:12 09/08/20 12:12 DC Rocuronium [place] (Rocuronium [place]) 50 mg STK-MED ONCE IV 09/08/20 12:12 09/08/20 12:12 DC Succinylcholine Chloride (Quelicin) 200 mg STK-MED ONCE .ROUTE 09/08/20 12:12 09/08/20 12:12 DC Fentanyl Citrate (Sublimaze) 50 mcg STK-MED ONCE .ROUTE 09/08/20 12:13 09/08/20 12:13 DC Propofol (Diprivan) 200 mg STK-MED ONCE IV 09/08/20 12:13 09/08/20 12:14 DC Bupivacaine HCl (Sensorcaine-Mpf 0.25% Vial) 2.5 mg STK-MED ONCE .ROUTE 09/08/20 12:13 09/08/20 12:14 DC Tranexamic Acid (Tranexamic Acid) 1,000 mg STK-MED ONCE .ROUTE 09/08/20 12:14 09/08/20 12:14 DC Sodium Chloride 1,000 ml @ ud STK-MED ONCE .ROUTE 09/08/20 12:43 09/08/20 12:43 DC Sodium Chloride 100 ml @ ud STK-MED ONCE IV 09/08/20 13:42 09/08/20 13:43 DC Cefazolin Sodium (Ancef) 1 gm STK-MED ONCE .ROUTE 09/08/20 13:43 09/08/20 13:43 DC Tramadol HCl (Ultram) 50 mg Q6H PRN PO PAIN 4 - 6 09/08/20 16:30 10/08/20 16:29 Tramadol HCl (Ultram) 100 mg Q6H PRN PO PAIN 7 - 10 09/08/20 16:30 10/08/20 16:29 Rivaroxaban (Xarelto) 10 mg DAILY PO 09/09/20 17:00 10/09/20 16:59 Docusate Sodium (Colace) 100 mg DAILY PO 09/09/20 09:00 10/09/20 08:59 Throat Lozenges (Cepacol Sore Throat Lozenge) 1 each PRN PRN MM SORE THROAT 09/08/20 16:30 10/08/20 16:29 Famotidine (Pepcid) 20 mg DAILY PO 09/09/20 09:00 10/09/20 08:59 Cefazolin Sodium/ Dextrose (Ancef 2 Gm/D5W 50ml) 2 gm Q8 IV 09/08/20 22:00 09/09/20 14:01 09/09/20 05:22 Acetaminophen (Tylenol) 1,000 mg Q6HR PO 09/08/20 18:00 10/08/20 17:59 Morphine Sulfate (Morphine Sulfate) 2 mg Q6HR PRN IV PAIN 7 - 10 09/08/20 16:30 10/08/20 16:29 Ondansetron HCl (Zofran) 4 mg Q4H PRN IV NAUSEA / VOMITING 09/08/20 16:30 10/08/20 16:29 Sodium Chloride 500 ml @ ud STK-MED ONCE IV 09/09/20 01:11 09/09/20 01:12 DC Sodium Chloride 500 ml @ 500 mls/hr OT IV 09/09/20 01:10 09/09/20 02:09 DC 09/09/20 01:23 Assessment/Plan Assessment/Plan Problems: (1) Hip fracture ICD Code: S72.009A - Fracture of unspecified part of neck of unspecified femur, initial encounter for closed fracture SNOMED: 609532831 (2) Asthma Status: Chronic ICD Code: J45.909 - Unspecified asthma, uncomplicated SNOMED: 682742667 (3) Delusional disorder Status: Chronic ICD Code: F22 - Delusional disorders SNOMED: 10130333 Plan Plan Postoperative pain management, close monitoring of vital signs and pulse ox Continue currentMedications PT/OT eval and treat GI and DVT prophylaxis Case discussed with patient family ELLIS RENO MD Sep 09, 2020 12:20
--- NOTE | 2020-09-09 12:47 | DIET.OP ---
Nutrition Asmt/Malnutrit 2-17 Actual Date of Review: Sep 09, 2020 Nutritional Screening: Malnutr/Diet Consult Diagnosis: hip fracture Pertinent Medical Hx/Surgical: delusional disorder Subjective Information: pt was admitted to the the [facility]. She had a fall while there and required surgery to hip yesterday. Saw pt and her via telehealth. Pt not providing reliable information however states ever since she had all of her teeth taken out 2 years ago her weight has been gradually declining. He estimates she has lost about 40# over the last 2 years. Today she ate the best she has eaten in 4 days eating all of lunch, 75% of breakfast, and a candy bar so far. Current Diet Order/Nutrition S: regular diet Pertinent Meds Current Medications Medications (Trade) Dose Ordered Sig/Rodolfo PRN Reason Start Time Stop Time Status Last Admin Acetaminophen (Tylenol) 1,000 mg Q6HR 09/08/20 18:00 10/08/20 17:59 Albuterol/ Ipratropium (Duo 0.5-3(2.5) Mg/3 ml) 3 ml RTQ2 PRN SHORTNESS OF BREATH 09/08/20 11:02 10/08/20 10:29 Cefazolin Sodium/ Dextrose (Ancef 2 Gm/D5W 50ml) 2 gm Q8 09/08/20 22:00 09/09/20 14:01 09/09/20 05:22 Docusate Sodium (Colace) 100 mg DAILY 09/09/20 09:00 10/09/20 08:59 09/09/20 10:45 Famotidine (Pepcid) 20 mg DAILY 09/09/20 09:00 10/09/20 08:59 09/09/20 10:45 Morphine Sulfate (Morphine Sulfate) 2 mg Q6HR PRN PAIN 7 - 10 09/08/20 16:30 10/08/20 16:29 Ondansetron HCl (Zofran) 4 mg Q4H PRN NAUSEA / VOMITING 09/08/20 16:30 10/08/20 16:29 Rivaroxaban (Xarelto) 10 mg DAILY 09/09/20 17:00 10/09/20 16:59 Throat Lozenges (Cepacol Sore Throat Lozenge) 1 each PRN PRN SORE THROAT 09/08/20 16:30 10/08/20 16:29 Tramadol HCl (Ultram) 50 mg Q6H PRN PAIN 4 - 6 09/08/20 16:30 10/08/20 16:29 Tramadol HCl (Ultram) 100 mg Q6H PRN PAIN 7 - 10 09/08/20 16:30 10/08/20 16:29 09/09/20 10:45 Pertinent Labs Laboratory Tests Test 09/08/20 10:55 09/08/20 12:30 09/08/20 16:40 09/08/20 20:25 White Blood Count 7.4 10^3/uL 9.9 10^3/uL Red Blood Count 4.10 10^6/uL 3.58 10^6/uL Hemoglobin 13.0 g/dL 11.9 g/dL 11.3 g/dL Hematocrit 39.7 % 39.7 % 35.5 % Mean Corpuscular Volume 96.8 fL 99.2 fL Mean Corpuscular Hemoglobin 31.7 pg 31.6 pg Mean Corpuscular Hemoglobin Concent 32.7 g/dL 31.8 g/dL Red Cell Distribution Width 13.5 % 13.5 % Platelet Count 186 10^3/uL 139 10^3/uL Mean Platelet Volume 9.3 fL 10.8 fL Neutrophils (%) (Auto) 83.2 % Lymphocytes (%) (Auto) 8.3 % Monocytes (%) (Auto) 8.2 % Neutrophils # (Auto) 6.1 10^3/uL Lymphocytes # (Auto) 0.61 10^3/uL1 Monocytes # (Auto) 0.6 10^3/uL Absolute Immature Granulocyte (auto 0.02 10^3 u/L Absolute Eosinophils (auto) 0.0 10^3/uL Immature Granulocytes % 0.30 % Eosinophils % 0.0 % Basophils % 0.3 % Basophils # 0.0 10^3/uL Sodium Level 142 mmol/L Potassium Level 4.2 mmol/L Chloride Level 105.0 mmol/L Carbon Dioxide Level 23.8 mmol/L Anion Gap 17.4 Blood Urea Nitrogen 12 mg/dL Creatinine 0.65 mg/dL Estimated GFR () 108.4 Est GFR (CKD-EPI)(Non-Afr [place]) 89.6 BUN/Creatinine Ratio 18.0 Glucose Level 108 mg/dL Calcium Level 8.8 mg/dL Total Bilirubin 0.8 mg/dL Aspartate Amino Transf (AST/SGOT) 32 U/L Alanine Aminotransferase (ALT/SGPT) 21 U/L Alkaline Phosphatase 76 U/L Total Protein 7.1 g/dL Albumin 3.4 g/dL Globulin 3.7 Albumin/Globulin Ratio 0.918 Prothrombin Time 11.4 SEC Prothrombin Time INR (Non-Therap) 1.1 Activated Partial Thromboplast Time 23.5 SEC Test 09/09/20 04:30 White Blood Count 6.3 10^3/uL Red Blood Count 3.18 10^6/uL Hemoglobin 10.0 g/dL Hematocrit 31.6 % Mean Corpuscular Volume 99.4 fL Mean Corpuscular Hemoglobin 31.4 pg Mean Corpuscular Hemoglobin Concent 31.6 g/dL Red Cell Distribution Width 13.5 % Platelet Count 120 10^3/uL Mean Platelet Volume 10.4 fL Neutrophils (%) (Auto) 82.4 % Lymphocytes (%) (Auto) 8.1 % Monocytes (%) (Auto) 9.3 % Neutrophils # (Auto) 5.2 10^3/uL Lymphocytes # (Auto) 0.51 10^3/uL1 Monocytes # (Auto) 0.6 10^3/uL Absolute Immature Granulocyte (auto 0.01 10^3 u/L Absolute Eosinophils (auto) 0.0 10^3/uL Immature Granulocytes % 0.20 % Eosinophils % 0.0 % Basophils % 0.2 % Basophils # 0.0 10^3/uL Sodium Level 142 mmol/L Potassium Level 4.2 mmol/L Chloride Level 109.0 mmol/L Carbon Dioxide Level 27.4 mmol/L Glucose Level 104 mg/dL Blood Urea Nitrogen 10 mg/dL Creatinine 0.62 mg/dL Calcium Level 8.0 mg/dL Anion Gap 9.8 Estimated GFR () 114.5 Est GFR (CKD-EPI)(Non-Afr [place]) 94.6 BUN/Creatinine Ratio 16.0 Height (Feet): 5 Height (Inches): 3 Current Weight: 118 %IBW: 103 Recent Weight Change: Yes ( reports approx 40# decline over last 2 years.) Weight Status: Appropriate GI Symptoms: Last BM (09/09), None Difficult in: Chewing (no teeth) Food Allergies: Yes (banana and wheat) Cultural/Ethnic/Voodoo Peggy: none Usual Diet at Home: regular Skin Integrity/Comment: No Current %PO: 0-50% BEE in Kcals: Use Current Weight Calories/Kcals/Kg: MSJ *1.2-1.4 Kcals Calculated: 4528-3378 kcal Protein: Use Current Weight Protein g/k-1.2 g/kg Protein Calculated: 53-64g Fluid: ml: 9767-2800 ml Nutritional Problem: Nutr. Problems Present Problems: unintentional wt loss Etiology: lack of teeth/difficulty chewing Signs/Symptoms: 40# decline over last [address] Comments: 1. Recommend minced and moist diet order. 2. Encourage po intake at each meal. 3. RD to monitor need for nutritional supplement 4. Daily wts Expected Outcomes 65-100% of most meals to meet 90-100% of nutrition needs the next 3-5 days. Discharge on regular diet Malnutrtion/Nutrition Risk Edu: No MD Notificiation Needed?: Yes (recommend minced and moist diet - pt with no teeth) Maribeth Cooper Sep 09, 2020 12:47
--- NOTE | 2020-09-09 12:56 | NUR ---
CAST CAST APPLIED TO RIGHT ARM PER PHYLLIS FROM DR DAMON'S OFFICE
[2020-09-09 13:54] VITALS: BP 84/51
--- NOTE | 2020-09-09 14:13 | NUR ---
DISCHARGE PLAN PATIENT WAS TRANSFERRED FROM [facility] FOR A FALL AND FRACTURED FEMUR. PER Rhonda ALARCON PATIENT WILL TRANSFER BACK TO [facility]. DISCHARGE PLAN IS FOR PATIENT TO D/C BACK TO [facility].
[2020-09-09 16:31] VITALS: BP 118/68
[2020-09-09] MEDS ORDERED: ANCEF 2 GM/D5W 50ML 50 ML IV ONE (16:34)
--- NOTE | 2020-09-09 16:49 | NUR ---
INCISION PT CONFUSED AND AGITATED AT THIS TIME. PT RIPPED OFF PREVENA DRESSING. DR DAMON NOTIFIED. ORDERS RECEIVED TO PLACE AQUACEL DRESSING. RBTO
[2020-09-09] MEDS: XARELTO PO SCH (17:00)
[2020-09-09 20:04] VITALS: BP 110/71
[2020-09-10] MEDS: TYLENOL PO SCH ×4 (00:55→18:00)
[2020-09-10 01:06] VITALS: BP 103/58
[2020-09-10] MEDS: D5W-1/2NS 1000ML 1,000 ML IV SCH ×3 (01:31→22:30)
[2020-09-10 04:19] VITALS: BP 140/92
[2020-09-10 04:42] LABS: BASOPHIL % 0.6 % (0.0-0.2); EOSINOPHIL # 0.3 10^3/uL (0.0-0.2); EOSINOPHIL % 3.9 % (0.0-5.0); LYMPHOCYTES # 1.07 10^3/uL1 (1.0-4.8); LYMPHOCYTES % 16.7 % (24.0-44.0); MONOCYTES # 0.6 10^3/uL (0.3-0.8); MONOCYTES % 8.9 % (5.0-12.0); NEUTROPHIL # 4.5 10^3/uL (1.8-7.7); NEUTROPHILS % 69.9 % (41.0-85.0); PLATELET COUNT 123 10^3/uL (150-400); RED CELL DISTRIBUTION WIDTH 13.3 % (11.5-14.5)
[2020-09-10 04:45] LABS: CALCIUM 8.5 mg/dL (8.4-10.5); CARBON DIOXIDE 27.5 mmol/L (20.0-32)
[2020-09-10 08:35] VITALS: BP 139/79
--- NOTE | 2020-09-10 09:01 | PRM.PN ---
Subjective Subjective Date: Sep 10, 2020 Time: 08:54 Subjective Up in chair with OT Complains of pain in right knee VSS HGB 10 Tolerating long arm cast well Right knee vazquez s no bruising or swelling Some diffuse pain with Palpation ligaments ok Will check xray of right knee VTE VTE Risk Total Score: 5 VTE Risk Score VTE Risk: Score 0-1 = Low Risk (Aggressive mobilization; early ambulation; no VTE prophylaxis required) Score 2: Moderate Risk (Intermittent/Pneumatic Compression Device OR Lovenox/Heparin/Coumadin) Score 3-4: High Risk (Intermittent/Pneumatic Compression Device AND Lovenox/Heparin/Coumadin) Score > or =5: Highest Risk (Intermittent/Pneumatic Compression Device AND Lovenox/Heparin/Coumadin) Antico:Hep/LMWH/Coum/Xarelto: Yes Mechanical device ordered: Yes Review of Systems Constitutional: No: Fever, Chills Eyes: No: Pain, Vision change ENT: No: Ear pain, Ear discharge Respiratory: No: Cough, Dry, Shortness of breath Cardiovascular: No: Chest Pain, Palpitations Gastrointestinal: No: Nausea, Vomiting Genitourinary: No Dysuria, No Frequency Musculoskeletal: other (Hip pain) Skin: No: Jaundice Neurological: Weakness, Confusion, Other; No: Change in speech Allergies: Coded Allergies: banana (Verified Allergy, Unknown, 09/07/20) ciprofloxacin (Verified Allergy, Unknown, 09/07/20) wheat (Verified Allergy, Unknown, 09/07/20) No Active Prescriptions or Reported Meds Objective Vitals and I/O Vital Sign - Last 24 Hours 09/09/20 09/09/20 09/09/20 09/09/20 10:24 11:34 13:54 13:58 Temp 98.6 Pulse 89 86 Resp 16 16 B/P (MAP) 84/51 (62) Pulse Ox 99 100 O2 Delivery Nasal Cannula Nasal Cannula Room Air O2 Flow Rate 2.00 2.00 FiO2 09/09/20 09/09/20 09/09/20 09/09/20 16:31 20:04 22:59 22:59 Temp 98.9 98.5 Pulse 88 86 74 Resp 18 17 14 B/P (MAP) 118/68 (85) 110/71 (84) Pulse Ox 94 96 93 O2 Delivery Room Air Room Air Nasal Cannula O2 Flow Rate 2.00 FiO2 28 09/10/20 09/10/20 09/10/20 01:06 04:19 08:35 Temp 96.8 98.5 98.1 Pulse 68 102 90 Resp 15 18 18 B/P (MAP) 103/58 (73) 140/92 (108) 139/79 (99) Pulse Ox 96 98 95 O2 Delivery Room Air Intake and Output 09/10/20 07:00 Intake Total 480 ml Output Total 1000 ml Balance -520 ml General: Alert, mild distress HEENT: Atraumatic, PERRLA Lungs: Clear to auscultation Heart: Regular rate, Normal S1, Normal S2 Abdomen: Normal bowel sounds, Soft, No tenderness Extremities: No clubbing, No cyanosis, Other (Hip tenderness) Skin: Other (Postoperative hip) Neuro: Normal speech, Normal tone Psych/Mental Status: Other (Unable to assess) All Results(Lab/Rad) Laboratory Tests Test 09/08/20 10:55 09/08/20 12:30 09/08/20 16:40 09/08/20 20:25 White Blood Count 7.4 10^3/uL 9.9 10^3/uL Red Blood Count 4.10 10^6/uL 3.58 10^6/uL Hemoglobin 13.0 g/dL 11.9 g/dL 11.3 g/dL Hematocrit 39.7 % 39.7 % 35.5 % Mean Corpuscular Volume 96.8 fL 99.2 fL Mean Corpuscular Hemoglobin 31.7 pg 31.6 pg Mean Corpuscular Hemoglobin Concent 32.7 g/dL 31.8 g/dL Red Cell Distribution Width 13.5 % 13.5 % Platelet Count 186 10^3/uL 139 10^3/uL Mean Platelet Volume 9.3 fL 10.8 fL Neutrophils (%) (Auto) 83.2 % Lymphocytes (%) (Auto) 8.3 % Monocytes (%) (Auto) 8.2 % Neutrophils # (Auto) 6.1 10^3/uL Lymphocytes # (Auto) 0.61 10^3/uL1 Monocytes # (Auto) 0.6 10^3/uL Absolute Immature Granulocyte (auto 0.02 10^3 u/L Absolute Eosinophils (auto) 0.0 10^3/uL Immature Granulocytes % 0.30 % Eosinophils % 0.0 % Basophils % 0.3 % Basophils # 0.0 10^3/uL Sodium Level 142 mmol/L Potassium Level 4.2 mmol/L Chloride Level 105.0 mmol/L Carbon Dioxide Level 23.8 mmol/L Anion Gap 17.4 Blood Urea Nitrogen 12 mg/dL Creatinine 0.65 mg/dL Estimated GFR () 108.4 Est GFR (CKD-EPI)(Non-Afr [place]) 89.6 BUN/Creatinine Ratio 18.0 Glucose Level 108 mg/dL Calcium Level 8.8 mg/dL Total Bilirubin 0.8 mg/dL Aspartate Amino Transf (AST/SGOT) 32 U/L Alanine Aminotransferase (ALT/SGPT) 21 U/L Alkaline Phosphatase 76 U/L Total Protein 7.1 g/dL Albumin 3.4 g/dL Globulin 3.7 Albumin/Globulin Ratio 0.918 Prothrombin Time 11.4 SEC Prothrombin Time INR (Non-Therap) 1.1 Activated Partial Thromboplast Time 23.5 SEC Test 09/09/20 04:30 White Blood Count 6.3 10^3/uL Red Blood Count 3.18 10^6/uL Hemoglobin 10.0 g/dL Hematocrit 31.6 % Mean Corpuscular Volume 99.4 fL Mean Corpuscular Hemoglobin 31.4 pg Mean Corpuscular Hemoglobin Concent 31.6 g/dL Red Cell Distribution Width 13.5 % Platelet Count 120 10^3/uL Mean Platelet Volume 10.4 fL Neutrophils (%) (Auto) 82.4 % Lymphocytes (%) (Auto) 8.1 % Monocytes (%) (Auto) 9.3 % Neutrophils # (Auto) 5.2 10^3/uL Lymphocytes # (Auto) 0.51 10^3/uL1 Monocytes # (Auto) 0.6 10^3/uL Absolute Immature Granulocyte (auto 0.01 10^3 u/L Absolute Eosinophils (auto) 0.0 10^3/uL Immature Granulocytes % 0.20 % Eosinophils % 0.0 % Basophils % 0.2 % Basophils # 0.0 10^3/uL Sodium Level 142 mmol/L Potassium Level 4.2 mmol/L Chloride Level 109.0 mmol/L Carbon Dioxide Level 27.4 mmol/L Glucose Level 104 mg/dL Blood Urea Nitrogen 10 mg/dL Creatinine 0.62 mg/dL Calcium Level 8.0 mg/dL Anion Gap 9.8 Estimated GFR () 114.5 Est GFR (CKD-EPI)(Non-Afr [place]) 94.6 BUN/Creatinine Ratio 16.0 Current Medications Medications (Trade) Dose Ordered Sig/Rodolfo Route PRN Reason Start Time Stop Time Status Last Admin Dose Admin Acetaminophen/ Hydrocodone Bitart ([place] 5mg) 1 ea Q4H PRN PO PAIN 4 - 6 09/08/20 10:30 09/08/20 16:46 DC Morphine Sulfate (Morphine Sulfate) 2 mg Q4H PRN IV PAIN 7 - 10 09/08/20 10:30 09/08/20 16:46 DC 09/08/20 11:35 Albuterol Sulfate (Ventolin) 2.5 mg RTQ2 PRN IH SHORTNESS OF BREATH 09/08/20 10:30 09/08/20 11:04 DC Ipratropium [place] (Atrovent) 0.5 mg RTQ2 PRN IH SHORTNESS OF BREATH 09/08/20 10:30 09/08/20 11:02 DC Albuterol/ Ipratropium (Duo 0.5-3(2.5) Mg/3 ml) 3 ml RTQ2 PRN IH SHORTNESS OF BREATH 09/08/20 11:02 10/08/20 10:29 Morphine Sulfate (Morphine Sulfate) 2 mg STK-MED ONCE .ROUTE 09/08/20 11:34 09/08/20 11:34 DC Sodium Chloride (Sodium Chloride Irr Bottle) 1,000 ml STK-MED ONCE IR 09/08/20 12:07 09/08/20 12:07 DC Sterile Water (Water) 1,000 ml STK-MED ONCE .ROUTE 09/08/20 12:07 09/08/20 12:07 DC Sodium Chloride 250 ml @ ud STK-MED ONCE .ROUTE 09/08/20 12:07 09/08/20 12:07 DC Sodium Chloride (NS 3000ml Irr) 3,000 ml STK-MED ONCE IR 09/08/20 12:07 09/08/20 12:07 DC Lidocaine HCl (Lidocaine 2% Vial) 500 mg STK-MED ONCE .ROUTE 09/08/20 12:10 09/08/20 12:10 DC Ondansetron HCl (Zofran) 4 mg STK-MED ONCE .ROUTE 09/08/20 12:10 09/08/20 12:11 DC Morphine Sulfate (Morphine Sulfate) 2 mg STK-MED ONCE .ROUTE 09/08/20 12:12 09/08/20 12:12 DC Rocuronium [place] (Rocuronium [place]) 50 mg STK-MED ONCE IV 09/08/20 12:12 09/08/20 12:12 DC Succinylcholine Chloride (Quelicin) 200 mg STK-MED ONCE .ROUTE 09/08/20 12:12 09/08/20 12:12 DC Fentanyl Citrate (Sublimaze) 50 mcg STK-MED ONCE .ROUTE 09/08/20 12:13 09/08/20 12:13 DC Propofol (Diprivan) 200 mg STK-MED ONCE IV 09/08/20 12:13 09/08/20 12:14 DC Bupivacaine HCl (Sensorcaine-Mpf 0.25% Vial) 2.5 mg STK-MED ONCE .ROUTE 09/08/20 12:13 09/08/20 12:14 DC Tranexamic Acid (Tranexamic Acid) 1,000 mg STK-MED ONCE .ROUTE 09/08/20 12:14 09/08/20 12:14 DC Sodium Chloride 1,000 ml @ ud STK-MED ONCE .ROUTE 09/08/20 12:43 09/08/20 12:43 DC Sodium Chloride 100 ml @ ud STK-MED ONCE IV 09/08/20 13:42 09/08/20 13:43 DC Cefazolin Sodium (Ancef) 1 gm STK-MED ONCE .ROUTE 09/08/20 13:43 09/08/20 13:43 DC Tramadol HCl (Ultram) 50 mg Q6H PRN PO PAIN 4 - 6 09/08/20 16:30 10/08/20 16:29 Tramadol HCl (Ultram) 100 mg Q6H PRN PO PAIN 7 - 10 09/08/20 16:30 10/08/20 16:29 Rivaroxaban (Xarelto) 10 mg DAILY PO 09/09/20 17:00 10/09/20 16:59 Docusate Sodium (Colace) 100 mg DAILY PO 09/09/20 09:00 10/09/20 08:59 Throat Lozenges (Cepacol Sore Throat Lozenge) 1 each PRN PRN MM SORE THROAT 09/08/20 16:30 10/08/20 16:29 Famotidine (Pepcid) 20 mg DAILY PO 09/09/20 09:00 10/09/20 08:59 Cefazolin Sodium/ Dextrose (Ancef 2 Gm/D5W 50ml) 2 gm Q8 IV 09/08/20 22:00 09/09/20 14:01 09/09/20 05:22 Acetaminophen (Tylenol) 1,000 mg Q6HR PO 09/08/20 18:00 10/08/20 17:59 Morphine Sulfate (Morphine Sulfate) 2 mg Q6HR PRN IV PAIN 7 - 09/08/20 16:30 10/08/20 16:29 Ondansetron HCl (Zofran) 4 mg Q4H PRN IV NAUSEA / VOMITING 09/08/20 16:30 10/08/20 16:29 Sodium Chloride 500 ml @ ud STK-MED ONCE IV 09/09/20 01:11 09/09/20 01:12 DC Sodium Chloride 500 ml @ 500 mls/hr OT IV 09/09/20 01:10 09/09/20 02:09 DC 09/09/20 01:23 Course Sepsis Screening Results: Posi: POSITIVE Sepsis Qualifier/Stage: SEPSIS RISK Vitals & review Data Vital Sign - Last 24 Hours 09/08/20 09/08/20 09/08/20 09/08/20 12:11 13:15 13:27 13:35 Pulse 90 104 89 Resp 16 16 16 B/P (MAP) 131/78 (95) 134/78 (96) 117/73 (88) Pulse Ox 99 99 99 O2 Delivery Room Air Nasal Canula Nasal Canula Nasal [place]ula O2 Flow Rate 2 2 2 09/08/20 09/08/20 09/08/20 09/08/20 16:21 16:27 16:32 16:37 Temp 97.5 Pulse 69 71 69 67 Resp 15 15 15 15 B/P (MAP) 118/71 (87) 104/63 (77) 93/60 (71) 90/56 (67) Pulse Ox 95 98 95 93 O2 Delivery Room Air Room Air Room Air Room Air 09/08/20 09/08/20 09/08/20 09/08/20 16:42 16:47 16:52 16:57 Pulse 74 75 66 70 Resp 15 15 15 16 B/P (MAP) 99/61 (74) 100/58 (72) 100/58 (72) 102/61 (75) Pulse Ox 96 93 92 97 O2 Delivery Room Air Room Air Room Air Nasal [place] O2 Flow Rate 4 09/08/20 09/08/20 09/08/20 09/08/20 17:02 17:07 17:12 17:17 Pulse 68 67 67 73 Resp 16 16 16 16 B/P (MAP) 112/59 (76) 104/88 (93) 96/60 (72) 100/59 (73) Pulse Ox 97 100 99 99 O2 Delivery Nasal [place] Nasal [place] Nasal Canula Nasal [place] O2 Flow Rate 4 2 2 2 09/08/20 09/08/20 09/08/20 09/08/20 17:22 17:27 17:55 17:55 Temp 97.3 97.9 Pulse 71 66 64 Resp 16 16 16 B/P (MAP) 102/67 (79) 105/64 (78) 95/58 (70) Pulse Ox 100 99 100 O2 Delivery Nasal [place] Nasal [place] O2 Flow Rate 2 2 2 09/08/20 09/08/20 09/08/20 09/08/20 17:55 18:36 20:21 21:00 Temp 97.9 96.3 Pulse 64 89 75 Resp 16 16 15 B/P (MAP) 95/58 (70) 86/50 (62) Pulse Ox 100 99 100 O2 Delivery Nasal [place] Room Air Nasal Cannula O2 Flow Rate 2 2.00 2.00 FiO2 28 09/09/20 09/09/20 09/09/20 01:30 06:01 07:51 Temp 96.1 97.9 97.5 Pulse 62 64 57 Resp 16 16 18 B/P (MAP) 81/48 (59) 97/61 (73) 136/76 (96) Pulse Ox 100 100 99 Intake and Output 09/09/20 06:59 Intake Total 6350 ml Output Total 730 ml Balance 5620 ml Laboratory Tests Test 09/08/20 10:55 09/08/20 12:30 09/08/20 16:40 09/08/20 20:25 White Blood Count 7.4 10^3/uL 9.9 10^3/uL Red Blood Count 4.10 10^6/uL 3.58 10^6/uL Hemoglobin 13.0 g/dL 11.9 g/dL 11.3 g/dL Hematocrit 39.7 % 39.7 % 35.5 % Mean Corpuscular Volume 96.8 fL 99.2 fL Mean Corpuscular Hemoglobin 31.7 pg 31.6 pg Mean Corpuscular Hemoglobin Concent 32.7 g/dL 31.8 g/dL Red Cell Distribution Width 13.5 % 13.5 % Platelet Count 186 10^3/uL 139 10^3/uL Mean Platelet Volume 9.3 fL 10.8 fL Neutrophils (%) (Auto) 83.2 % Lymphocytes (%) (Auto) 8.3 % Monocytes (%) (Auto) 8.2 % Neutrophils # (Auto) 6.1 10^3/uL Lymphocytes # (Auto) 0.61 10^3/uL1 Monocytes # (Auto) 0.6 10^3/uL Absolute Immature Granulocyte (auto 0.02 10^3 u/L Absolute Eosinophils (auto) 0.0 10^3/uL Immature Granulocytes % 0.30 % Eosinophils % 0.0 % Basophils % 0.3 % Basophils # 0.0 10^3/uL Sodium Level 142 mmol/L Potassium Level 4.2 mmol/L Chloride Level 105.0 mmol/L Carbon Dioxide Level 23.8 mmol/L Anion Gap 17.4 Blood Urea Nitrogen 12 mg/dL Creatinine 0.65 mg/dL Estimated GFR () 108.4 Est GFR (CKD-EPI)(Non-Afr [place]) 89.6 BUN/Creatinine Ratio 18.0 Glucose Level 108 mg/dL Calcium Level 8.8 mg/dL Total Bilirubin 0.8 mg/dL Aspartate Amino Transf (AST/SGOT) 32 U/L Alanine Aminotransferase (ALT/SGPT) 21 U/L Alkaline Phosphatase 76 U/L Total Protein 7.1 g/dL Albumin 3.4 g/dL Globulin 3.7 Albumin/Globulin Ratio 0.918 Prothrombin Time 11.4 SEC Prothrombin Time INR (Non-Therap) 1.1 Activated Partial Thromboplast Time 23.5 SEC Test 09/09/20 04:30 White Blood Count 6.3 10^3/uL Red Blood Count 3.18 10^6/uL Hemoglobin 10.0 g/dL Hematocrit 31.6 % Mean Corpuscular Volume 99.4 fL Mean Corpuscular Hemoglobin 31.4 pg Mean Corpuscular Hemoglobin Concent 31.6 g/dL Red Cell Distribution Width 13.5 % Platelet Count 120 10^3/uL Mean Platelet Volume 10.4 fL Neutrophils (%) (Auto) 82.4 % Lymphocytes (%) (Auto) 8.1 % Monocytes (%) (Auto) 9.3 % Neutrophils # (Auto) 5.2 10^3/uL Lymphocytes # (Auto) 0.51 10^3/uL1 Monocytes # (Auto) 0.6 10^3/uL Absolute Immature Granulocyte (auto 0.01 10^3 u/L Absolute Eosinophils (auto) 0.0 10^3/uL Immature Granulocytes % 0.20 % Eosinophils % 0.0 % Basophils % 0.2 % Basophils # 0.0 10^3/uL Sodium Level 142 mmol/L Potassium Level 4.2 mmol/L Chloride Level 109.0 mmol/L Carbon Dioxide Level 27.4 mmol/L Glucose Level 104 mg/dL Blood Urea Nitrogen 10 mg/dL Creatinine 0.62 mg/dL Calcium Level 8.0 mg/dL Anion Gap 9.8 Estimated GFR () 114.5 Est GFR (CKD-EPI)(Non-Afr [place]) 94.6 BUN/Creatinine Ratio 16.0 Current Medications Medications (Trade) Dose Ordered Sig/Rodolfo PRN Reason Start Time Stop Time Status Last Admin Acetaminophen (Tylenol) 1,000 mg Q6HR 09/08/20 18:00 10/08/20 17:59 Albuterol/ Ipratropium (Duo 0.5-3(2.5) Mg/3 ml) 3 ml RTQ2 PRN SHORTNESS OF BREATH 09/08/20 11:02 10/08/20 10:29 Cefazolin Sodium/ Dextrose (Ancef 2 Gm/D5W 50ml) 2 gm Q8 09/08/20 22:00 09/09/20 14:01 09/09/20 05:22 Docusate Sodium (Colace) 100 mg DAILY 09/09/20 09:00 10/09/20 08:59 Famotidine (Pepcid) 20 mg DAILY 09/09/20 09:00 10/09/20 08:59 Morphine Sulfate (Morphine Sulfate) 2 mg Q6HR PRN PAIN 7 - 10 09/08/20 16:30 10/08/20 16:29 Ondansetron HCl (Zofran) 4 mg Q4H PRN NAUSEA / VOMITING 09/08/20 16:30 10/08/20 16:29 Rivaroxaban (Xarelto) 10 mg DAILY 09/09/20 17:00 10/09/20 16:59 Throat Lozenges (Cepacol Sore Throat Lozenge) 1 each PRN PRN SORE THROAT 09/08/20 16:30 10/08/20 16:29 Tramadol HCl (Ultram) 50 mg Q6H PRN PAIN 4 - 6 09/08/20 16:30 10/08/20 16:29 Tramadol HCl (Ultram) 100 mg Q6H PRN PAIN 7 - 10 09/08/20 16:30 10/08/20 16:29 LEVEL 1 SEPSIS INFECTION CRITE: Recent Invasive Procedure Cardiovascular Evidence: Not Assessed or None Hematologic Evidence: None/Not assessed Hepatic Evidence: None/Not assessed Metabolic Evidence: None/Not assessed Neurological Evidence: Altered Mental Status Respiratory Evidence: None/Not assessed Renal Evidence: None/Not assessed O2 Sat by Pulse Oximetry: 95 Oxygen Flow Rate: 2.00 Assessment/Plan Assessment/Plan Assessment/Plan Plan Postoperative pain management, close monitoring of vital signs and pulse ox Continue currentMedications PT/OT eval and treat GI and DVT prophylaxis Case discussed with patient family Plan Plan Postoperative pain management, close monitoring of vital signs and pulse ox Continue currentMedications PT/OT eval and treat GI and DVT prophylaxis Case discussed with patient family MEAGAN DAMON MD Sep 10, 2020 09:01
[2020-09-10] MEDS: COLACE PO SCH (09:50)
[2020-09-10] MEDS: XARELTO PO SCH (09:50)
[2020-09-10] MEDS: PEPCID PO SCH (09:50)
[2020-09-10 12:11] VITALS: BP 120/75
--- NOTE | 2020-09-10 12:19 | PRM.PN ---
Subjective Subjective Date: Sep 10, 2020 Time: 09:00 Subjective Patient sitting up in a chair. Complaining of knee pain. Her left arm in cast for humerus fracture. Receiving physical therapy. X-ray of the knee was ordered by orthopedics. VTE VTE Risk Total Score: 5 VTE Risk Score VTE Risk: Score 0-1 = Low Risk (Aggressive mobilization; early ambulation; no VTE prophylaxis required) Score 2: Moderate Risk (Intermittent/Pneumatic Compression Device OR Lovenox/Heparin/Coumadin) Score 3-4: High Risk (Intermittent/Pneumatic Compression Device AND Lovenox/Heparin/Coumadin) Score > or =5: Highest Risk (Intermittent/Pneumatic Compression Device AND Lovenox/Heparin/Coumadin) Antico:Hep/LMWH/Coum/Xarelto: Yes Mechanical device ordered: Yes Review of Systems Constitutional: No: Fever, Chills Eyes: No: Pain, Vision change ENT: No: Ear pain, Ear discharge Respiratory: No: Cough, Dry, Shortness of breath Cardiovascular: No: Chest Pain, Palpitations Gastrointestinal: No: Nausea, Vomiting Genitourinary: No Dysuria, No Frequency Musculoskeletal: other (Hip pain) Skin: Bruising (Knee); No: Jaundice Neurological: Weakness, Confusion, Other; No: Change in speech Allergies: Coded Allergies: banana (Verified Allergy, Unknown, 09/07/20) ciprofloxacin (Verified Allergy, Unknown, 09/07/20) wheat (Verified Allergy, Unknown, 09/07/20) No Active Prescriptions or Reported Meds Objective Vitals and I/O Vital Sign - Last 24 Hours 09/09/20 09/09/20 09/09/20 09/09/20 13:54 13:58 16:31 20:04 Temp 98.6 98.9 98.5 Pulse 86 88 86 Resp 16 18 17 B/P (MAP) 84/51 (62) 118/68 (85) 110/71 (84) Pulse Ox 100 94 96 O2 Delivery Room Air Room Air 09/09/20 09/09/20 09/10/20 09/10/20 22:59 22:59 01:06 04:19 Temp 96.8 98.5 Pulse 74 68 102 Resp 14 15 18 B/P (MAP) 103/58 (73) 140/92 (108) Pulse Ox 93 96 98 O2 Delivery Room Air Nasal Cannula O2 Flow Rate 2.00 FiO2 28 09/10/20 09/10/20 09/10/20 08:35 09:01 12:11 Temp 98.1 98.7 Pulse 90 88 90 Resp 18 18 18 B/P (MAP) 139/79 (99) 120/75 (90) Pulse Ox 95 93 93 O2 Delivery Room Air Room Air Room Air FiO2 21 Intake and Output 09/10/20 07:00 Intake Total 480 ml Output Total 1000 ml Balance -520 ml General: Alert, mild distress HEENT: Atraumatic, PERRLA Lungs: Clear to auscultation Heart: Regular rate, Normal S1, Normal S2 Abdomen: Normal bowel sounds, Soft, No tenderness Extremities: No clubbing, No cyanosis, Other (Hip tenderness, Left arm cast) Skin: Other (Postoperative hip, Bruising knee) Neuro: Normal speech, Normal tone Psych/Mental Status: Other (Unable to assess) All Results(Lab/Rad) Laboratory Tests Test 09/08/20 10:55 09/08/20 12:30 09/08/20 16:40 09/08/20 20:25 White Blood Count 7.4 10^3/uL 9.9 10^3/uL Red Blood Count 4.10 10^6/uL 3.58 10^6/uL Hemoglobin 13.0 g/dL 11.9 g/dL 11.3 g/dL Hematocrit 39.7 % 39.7 % 35.5 % Mean Corpuscular Volume 96.8 fL 99.2 fL Mean Corpuscular Hemoglobin 31.7 pg 31.6 pg Mean Corpuscular Hemoglobin Concent 32.7 g/dL 31.8 g/dL Red Cell Distribution Width 13.5 % 13.5 % Platelet Count 186 10^3/uL 139 10^3/uL Mean Platelet Volume 9.3 fL 10.8 fL Neutrophils (%) (Auto) 83.2 % Lymphocytes (%) (Auto) 8.3 % Monocytes (%) (Auto) 8.2 % Neutrophils # (Auto) 6.1 10^3/uL Lymphocytes # (Auto) 0.61 10^3/uL1 Monocytes # (Auto) 0.6 10^3/uL Absolute Immature Granulocyte (auto 0.02 10^3 u/L Absolute Eosinophils (auto) 0.0 10^3/uL Immature Granulocytes % 0.30 % Eosinophils % 0.0 % Basophils % 0.3 % Basophils # 0.0 10^3/uL Sodium Level 142 mmol/L Potassium Level 4.2 mmol/L Chloride Level 105.0 mmol/L Carbon Dioxide Level 23.8 mmol/L Anion Gap 17.4 Blood Urea Nitrogen 12 mg/dL Creatinine 0.65 mg/dL Estimated GFR () 108.4 Est GFR (CKD-EPI)(Non-Afr [place]ian) 89.6 BUN/Creatinine Ratio 18.0 Glucose Level 108 mg/dL Calcium Level 8.8 mg/dL Total Bilirubin 0.8 mg/dL Aspartate Amino Transf (AST/SGOT) 32 U/L Alanine Aminotransferase (ALT/SGPT) 21 U/L Alkaline Phosphatase 76 U/L Total Protein 7.1 g/dL Albumin 3.4 g/dL Globulin 3.7 Albumin/Globulin Ratio 0.918 Prothrombin Time 11.4 SEC Prothrombin Time INR (Non-Therap) 1.1 Activated Partial Thromboplast Time 23.5 SEC Test 09/09/20 04:30 White Blood Count 6.3 10^3/uL Red Blood Count 3.18 10^6/uL Hemoglobin 10.0 g/dL Hematocrit 31.6 % Mean Corpuscular Volume 99.4 fL Mean Corpuscular Hemoglobin 31.4 pg Mean Corpuscular Hemoglobin Concent 31.6 g/dL Red Cell Distribution Width 13.5 % Platelet Count 120 10^3/uL Mean Platelet Volume 10.4 fL Neutrophils (%) (Auto) 82.4 % Lymphocytes (%) (Auto) 8.1 % Monocytes (%) (Auto) 9.3 % Neutrophils # (Auto) 5.2 10^3/uL Lymphocytes # (Auto) 0.51 10^3/uL1 Monocytes # (Auto) 0.6 10^3/uL Absolute Immature Granulocyte (auto 0.01 10^3 u/L Absolute Eosinophils (auto) 0.0 10^3/uL Immature Granulocytes % 0.20 % Eosinophils % 0.0 % Basophils % 0.2 % Basophils # 0.0 10^3/uL Sodium Level 142 mmol/L Potassium Level 4.2 mmol/L Chloride Level 109.0 mmol/L Carbon Dioxide Level 27.4 mmol/L Glucose Level 104 mg/dL Blood Urea Nitrogen 10 mg/dL Creatinine 0.62 mg/dL Calcium Level 8.0 mg/dL Anion Gap 9.8 Estimated GFR () 114.5 Est GFR (CKD-EPI)(Non-Afr [place]ian) 94.6 BUN/Creatinine Ratio 16.0 Current Medications Medications (Trade) Dose Ordered Sig/Rodolfo Route PRN Reason Start Time Stop Time Status Last Admin Dose Admin Acetaminophen/ Hydrocodone Bitart ([place] 5mg) 1 ea Q4H PRN PO PAIN 4 - 6 09/08/20 10:30 09/08/20 16:46 DC Morphine Sulfate (Morphine Sulfate) 2 mg Q4H PRN IV PAIN 7 - 10 09/08/20 10:30 09/08/20 16:46 DC 09/08/20 11:35 Albuterol Sulfate (Ventolin) 2.5 mg RTQ2 PRN IH SHORTNESS OF BREATH 09/08/20 10:30 09/08/20 11:04 DC Ipratropium [place] (Atrovent) 0.5 mg RTQ2 PRN IH SHORTNESS OF BREATH 09/08/20 10:30 09/08/20 11:02 DC Albuterol/ Ipratropium (Duo 0.5-3(2.5) Mg/3 ml) 3 ml RTQ2 PRN IH SHORTNESS OF BREATH 09/08/20 11:02 10/08/20 10:29 Morphine Sulfate (Morphine Sulfate) 2 mg STK-MED ONCE .ROUTE 09/08/20 11:34 09/08/20 11:34 DC Sodium Chloride (Sodium Chloride Irr Bottle) 1,000 ml STK-MED ONCE IR 09/08/20 12:07 09/08/20 12:07 DC Sterile Water (Water) 1,000 ml STK-MED ONCE .ROUTE 09/08/20 12:07 09/08/20 12:07 DC Sodium Chloride 250 ml @ ud STK-MED ONCE .ROUTE 09/08/20 12:07 09/08/20 12:07 DC Sodium Chloride (NS 3000ml Irr) 3,000 ml STK-MED ONCE IR 09/08/20 12:07 09/08/20 12:07 DC Lidocaine HCl (Lidocaine 2% Vial) 500 mg STK-MED ONCE .ROUTE 09/08/20 12:10 09/08/20 12:10 DC Ondansetron HCl (Zofran) 4 mg STK-MED ONCE .ROUTE 09/08/20 12:10 09/08/20 12:11 DC Morphine Sulfate (Morphine Sulfate) 2 mg STK-MED ONCE .ROUTE 09/08/20 12:12 09/08/20 12:12 DC Rocuronium Plain (Rocuronium Plain) 50 mg STK-MED ONCE IV 09/08/20 12:12 09/08/20 12:12 DC Succinylcholine Chloride (Quelicin) 200 mg STK-MED ONCE .ROUTE 09/08/20 12:12 09/08/20 12:12 DC Fentanyl Citrate (Sublimaze) 50 mcg STK-MED ONCE .ROUTE 09/08/20 12:13 09/08/20 12:13 DC Propofol (Diprivan) 200 mg STK-MED ONCE IV 09/08/20 12:13 09/08/20 12:14 DC Bupivacaine HCl (Sensorcaine-Mpf 0.25% Vial) 2.5 mg STK-MED ONCE .ROUTE 09/08/20 12:13 09/08/20 12:14 DC Tranexamic Acid (Tranexamic Acid) 1,000 mg STK-MED ONCE .ROUTE 09/08/20 12:14 09/08/20 12:14 DC Sodium Chloride 1,000 ml @ ud STK-MED ONCE .ROUTE 09/08/20 12:43 09/08/20 12:43 DC Sodium Chloride 100 ml @ ud STK-MED ONCE IV 09/08/20 13:42 09/08/20 13:43 DC Cefazolin Sodium (Ancef) 1 gm STK-MED ONCE .ROUTE 09/08/20 13:43 09/08/20 13:43 DC Tramadol HCl (Ultram) 50 mg Q6H PRN PO PAIN 4 - 6 09/08/20 16:30 10/08/20 16:29 Tramadol HCl (Ultram) 100 mg Q6H PRN PO PAIN 7 - 10 09/08/20 16:30 10/08/20 16:29 Rivaroxaban (Xarelto) 10 mg DAILY PO 09/09/20 17:00 10/09/20 16:59 Docusate Sodium (Colace) 100 mg DAILY PO 09/09/20 09:00 10/09/20 08:59 Throat Lozenges (Cepacol Sore Throat Lozenge) 1 each PRN PRN MM SORE THROAT 7/28/21 16:30 10/08/20 16:29 Famotidine (Pepcid) 20 mg DAILY PO 09/09/20 09:00 10/09/20 08:59 Cefazolin Sodium/ Dextrose (Ancef 2 Gm/D5W 50ml) 2 gm Q8 IV 09/08/20 22:00 09/09/20 14:01 09/09/20 05:22 Acetaminophen (Tylenol) 1,000 mg Q6HR PO 09/08/20 18:00 10/08/20 17:59 Morphine Sulfate (Morphine Sulfate) 2 mg Q6HR PRN IV PAIN 7 - 09/08/20 16:30 10/08/20 16:29 Ondansetron HCl (Zofran) 4 mg Q4H PRN IV NAUSEA / VOMITING 09/08/20 16:30 10/08/20 16:29 Sodium Chloride 500 ml @ ud STK-MED ONCE IV 09/09/20 01:11 09/09/20 01:12 DC Sodium Chloride 500 ml @ 500 mls/hr OT IV 09/09/20 01:10 09/09/20 02:09 DC 09/09/20 01:23 Assessment/Plan Assessment/Plan Assessment/Plan Problems: (1) Knee pain ICD Code: M25.569 - Pain in unspecified knee SNOMED: 2653179052 (2) Humerus fracture ICD Code: S42.309A - Unspecified fracture of shaft of humerus, unspecified arm, initial encounter for closed fracture SNOMED: 11532934 (3) Hip fracture ICD Code: S72.009A - Fracture of unspecified part of neck of unspecified femur, initial encounter for closed fracture SNOMED: 706120602 (4) Delusional disorder Status: Chronic ICD Code: F22 - Delusional disorders SNOMED: 26913314 (5) Asthma Status: Chronic ICD Code: J45.909 - Unspecified asthma, uncomplicated SNOMED: 434968036 Plan Plan X-ray of the knee, awaiting results Left arm cast Was placed Postoperative pain management, close monitoring of vital signs and pulse ox Continue currentMedications PT/OT eval and treat GI and DVT prophylaxis Case discussed with patient family Plan to be transferred back to behavioral health unit once the patient is medically clear ELLIS RENO MD Sep 10, 2020 12:19
--- NOTE | 2020-09-10 16:44 | DIREP ---
PROCEDURE:XRAY KNEE 2 VWS-RT COMPARISON:None. INDICATIONS:right knee pain FINDINGS: BONES:No acute fracture. JOINTS:Moderate lateral femoral tibial compartment osteoarthrosis with relatively mild degenerative changes of the medial and patellofemoral compartments, as evidenced by joint space narrowing and marginal osteophyte formation. SOFT TISSUES:Small suprapatellar joint effusion. OTHER:Scattered vascular calcifications. CONCLUSION: 1. No acute osseous abnormality. 2. Tricompartmental osteoarthrosis of the right knee with small suprapatellar joint effusion. Dictated by: Dewey Bravo M.D. On 09/10/2020 at 04:40 PM
[2020-09-10 17:34] VITALS: BP 117/79
[2020-09-10 20:00] VITALS: BP 122/79
--- NOTE | 2020-09-10 23:41 | NUR ---
IV PT REMOVED IV AND AQUACELL DRESSING FROM LEFT HIP. PT SCREAMING AND TELLING US NOT TO TOUCH HER, REFUSES TO LET THIS NURSE START NEW IV. CALLED DR DAMON, NO ANSWER - LEFT MESSAGE TO RETURN MY CALL.
--- NOTE | 2020-09-11 02:30 | NUR ---
REFUSED IV TOP TRIMMER MARY, RN SPOKE TO PT REGARDING RESTARTING IV. PT REFUSED. OFFERED PT PO TRAMADOL 50MG FOR PAIN, PT REFUSED.
[2020-09-11 04:23] VITALS: BP 140/84
[2020-09-11] MEDS: TYLENOL PO SCH ×5 (06:00→23:30)
[2020-09-11 08:23] LABS: MEAN CORP HGB 32.1 pg (26-34); RED CELL DISTRIBUTION WIDTH 13.4 % (11.5-14.5)
[2020-09-11 08:27] LABS: CALCIUM 8.2 mg/dL (8.4-10.5); CARBON DIOXIDE 27.3 mmol/L (20.0-32)
[2020-09-11] MEDS: D5W-1/2NS 1000ML 1,000 ML IV SCH ×2 (08:30→19:42)
[2020-09-11 10:15] VITALS: BP 134/72
[2020-09-11] MEDS: XARELTO PO SCH (10:15)
[2020-09-11] MEDS: COLACE PO SCH (10:15)
[2020-09-11] MEDS: PEPCID PO SCH (10:15)
--- NOTE | 2020-09-11 10:43 | PRM.PN ---
Subjective Subjective Date: Sep 11, 2020 Time: 10:42 Subjective Up in chair Slowly progressing with PT Xrays of knee show OA but no fxs HGB 10 Ok to transfer to Rehab as per Hospitalist VTE VTE Risk Total Score: 5 VTE Risk Score VTE Risk: Score 0-1 = Low Risk (Aggressive mobilization; early ambulation; no VTE prophylaxis required) Score 2: Moderate Risk (Intermittent/Pneumatic Compression Device OR Lovenox/Heparin/Coumadin) Score 3-4: High Risk (Intermittent/Pneumatic Compression Device AND Lovenox/Heparin/Coumadin) Score > or =5: Highest Risk (Intermittent/Pneumatic Compression Device AND Lovenox/Heparin/Coumadin) Antico:Hep/LMWH/Coum/Xarelto: Yes Mechanical device ordered: Yes Review of Systems Constitutional: No: Fever, Chills Eyes: No: Pain, Vision change ENT: No: Ear pain, Ear discharge Respiratory: No: Cough, Dry, Shortness of breath Cardiovascular: No: Chest Pain, Palpitations Gastrointestinal: No: Nausea, Vomiting Genitourinary: No Dysuria, No Frequency Musculoskeletal: other (Hip pain) Skin: Bruising (Knee); No: Jaundice Neurological: Weakness, Confusion, Other; No: Change in speech Allergies: Coded Allergies: banana (Verified Allergy, Unknown, 09/07/20) ciprofloxacin (Verified Allergy, Unknown, 09/07/20) wheat (Verified Allergy, Unknown, 09/07/20) No Active Prescriptions or Reported Meds Objective Vitals and I/O Vital Sign - Last 24 Hours 09/10/20 09/10/20 09/10/20 09/11/20 12:11 17:34 20:00 00:52 Temp 98.7 99.0 98.4 Pulse 90 100 99 Resp 18 18 17 B/P (MAP) 120/75 (90) 117/79 (92) 122/79 (93) Pulse Ox 93 99 98 O2 Delivery Room Air Room Air Room Air 09/11/20 09/11/20 01:20 04:23 Temp 97.6 Pulse 108 Resp 20 B/P (MAP) 140/84 (102) Pulse Ox 98 O2 Delivery Room Air Intake and Output 09/11/20 06:59 Intake Total 618 ml Output Total 1100 ml Balance -482 ml General: Alert, mild distress HEENT: Atraumatic, PERRLA Lungs: Clear to auscultation Heart: Regular rate, Normal S1, Normal S2 Abdomen: Normal bowel sounds, Soft, No tenderness Extremities: No clubbing, No cyanosis, Other (Hip tenderness, Left arm cast) Skin: Other (Postoperative hip, Bruising knee) Neuro: Normal speech, Normal tone Psych/Mental Status: Other (Unable to assess) All Results(Lab/Rad) Laboratory Tests Test 09/08/20 10:55 09/08/20 12:30 09/08/20 16:40 09/08/20 20:25 White Blood Count 7.4 10^3/uL 9.9 10^3/uL Red Blood Count 4.10 10^6/uL 3.58 10^6/uL Hemoglobin 13.0 g/dL 11.9 g/dL 11.3 g/dL Hematocrit 39.7 % 39.7 % 35.5 % Mean Corpuscular Volume 96.8 fL 99.2 fL Mean Corpuscular Hemoglobin 31.7 pg 31.6 pg Mean Corpuscular Hemoglobin Concent 32.7 g/dL 31.8 g/dL Red Cell Distribution Width 13.5 % 13.5 % Platelet Count 186 10^3/uL 139 10^3/uL Mean Platelet Volume 9.3 fL 10.8 fL Neutrophils (%) (Auto) 83.2 % Lymphocytes (%) (Auto) 8.3 % Monocytes (%) (Auto) 8.2 % Neutrophils # (Auto) 6.1 10^3/uL Lymphocytes # (Auto) 0.61 10^3/uL1 Monocytes # (Auto) 0.6 10^3/uL Absolute Immature Granulocyte (auto 0.02 10^3 u/L Absolute Eosinophils (auto) 0.0 10^3/uL Immature Granulocytes % 0.30 % Eosinophils % 0.0 % Basophils % 0.3 % Basophils # 0.0 10^3/uL Sodium Level 142 mmol/L Potassium Level 4.2 mmol/L Chloride Level 105.0 mmol/L Carbon Dioxide Level 23.8 mmol/L Anion Gap 17.4 Blood Urea Nitrogen 12 mg/dL Creatinine 0.65 mg/dL Estimated GFR () 108.4 Est GFR (CKD-EPI)(Non-Afr Chinese) 89.6 BUN/Creatinine Ratio 18.0 Glucose Level 108 mg/dL Calcium Level 8.8 mg/dL Total Bilirubin 0.8 mg/dL Aspartate Amino Transf (AST/SGOT) 32 U/L Alanine Aminotransferase (ALT/SGPT) 21 U/L Alkaline Phosphatase 76 U/L Total Protein 7.1 g/dL Albumin 3.4 g/dL Globulin 3.7 Albumin/Globulin Ratio 0.918 Prothrombin Time 11.4 SEC Prothrombin Time INR (Non-Therap) 1.1 Activated Partial Thromboplast Time 23.5 SEC Test 09/09/20 04:30 White Blood Count 6.3 10^3/uL Red Blood Count 3.18 10^6/uL Hemoglobin 10.0 g/dL Hematocrit 31.6 % Mean Corpuscular Volume 99.4 fL Mean Corpuscular Hemoglobin 31.4 pg Mean Corpuscular Hemoglobin Concent 31.6 g/dL Red Cell Distribution Width 13.5 % Platelet Count 120 10^3/uL Mean Platelet Volume 10.4 fL Neutrophils (%) (Auto) 82.4 % Lymphocytes (%) (Auto) 8.1 % Monocytes (%) (Auto) 9.3 % Neutrophils # (Auto) 5.2 10^3/uL Lymphocytes # (Auto) 0.51 10^3/uL1 Monocytes # (Auto) 0.6 10^3/uL Absolute Immature Granulocyte (auto 0.01 10^3 u/L Absolute Eosinophils (auto) 0.0 10^3/uL Immature Granulocytes % 0.20 % Eosinophils % 0.0 % Basophils % 0.2 % Basophils # 0.0 10^3/uL Sodium Level 142 mmol/L Potassium Level 4.2 mmol/L Chloride Level 109.0 mmol/L Carbon Dioxide Level 27.4 mmol/L Glucose Level 104 mg/dL Blood Urea Nitrogen 10 mg/dL Creatinine 0.62 mg/dL Calcium Level 8.0 mg/dL Anion Gap 9.8 Estimated GFR () 114.5 Est GFR (CKD-EPI)(Non-Afr Chinese) 94.6 BUN/Creatinine Ratio 16.0 Current Medications Medications (Trade) Dose Ordered Sig/Rodolfo Route PRN Reason Start Time Stop Time Status Last Admin Dose Admin Acetaminophen/ Hydrocodone Bitart ([place] 5mg) 1 ea Q4H PRN PO PAIN 4 - 6 09/08/20 10:30 09/08/20 16:46 DC Morphine Sulfate (Morphine Sulfate) 2 mg Q4H PRN IV PAIN 7 - 10 09/08/20 10:30 09/08/20 16:46 DC 09/08/20 11:35 Albuterol Sulfate (Ventolin) 2.5 mg RTQ2 PRN IH SHORTNESS OF BREATH 09/08/20 10:30 09/08/20 11:04 DC Ipratropium Pillow (Atrovent) 0.5 mg RTQ2 PRN IH SHORTNESS OF BREATH 09/08/20 10:30 09/08/20 11:02 DC Albuterol/ Ipratropium (Duo 0.5-3(2.5) Mg/3 ml) 3 ml RTQ2 PRN IH SHORTNESS OF BREATH 09/08/20 11:02 10/08/20 10:29 Morphine Sulfate (Morphine Sulfate) 2 mg STK-MED ONCE .ROUTE 09/08/20 11:34 09/08/20 11:34 DC Sodium Chloride (Sodium Chloride Irr Bottle) 1,000 ml STK-MED ONCE IR 09/08/20 12:07 09/08/20 12:07 DC Sterile Water (Water) 1,000 ml STK-MED ONCE .ROUTE 09/08/20 12:07 09/08/20 12:07 DC Sodium Chloride 250 ml @ ud STK-MED ONCE .ROUTE 09/08/20 12:07 09/08/20 12:07 DC Sodium Chloride (NS 3000ml Irr) 3,000 ml STK-MED ONCE IR 09/08/20 12:07 09/08/20 12:07 DC Lidocaine HCl (Lidocaine 2% Vial) 500 mg STK-MED ONCE .ROUTE 09/08/20 12:10 09/08/20 12:10 DC Ondansetron HCl (Zofran) 4 mg STK-MED ONCE .ROUTE 09/08/20 12:10 09/08/20 12:11 DC Morphine Sulfate (Morphine Sulfate) 2 mg STK-MED ONCE .ROUTE 09/08/20 12:12 09/08/20 12:12 DC Rocuronium Pillow (Rocuronium Pillow) 50 mg STK-MED ONCE IV 09/08/20 12:12 09/08/20 12:12 DC Succinylcholine Chloride (Quelicin) 200 mg STK-MED ONCE .ROUTE 09/08/20 12:12 09/08/20 12:12 DC Fentanyl Citrate (Sublimaze) 50 mcg STK-MED ONCE .ROUTE 09/08/20 12:13 09/08/20 12:13 DC Propofol (Diprivan) 200 mg STK-MED ONCE IV 09/08/20 12:13 09/08/20 12:14 DC Bupivacaine HCl (Sensorcaine-Mpf 0.25% Vial) 2.5 mg STK-MED ONCE .ROUTE 09/08/20 12:13 09/08/20 12:14 DC Tranexamic Acid (Tranexamic Acid) 1,000 mg STK-MED ONCE .ROUTE 09/08/20 12:14 09/08/20 12:14 DC Sodium Chloride 1,000 ml @ ud STK-MED ONCE .ROUTE 09/08/20 12:43 09/08/20 12:43 DC Sodium Chloride 100 ml @ ud STK-MED ONCE IV 09/08/20 13:42 09/08/20 13:43 DC Cefazolin Sodium (Ancef) 1 gm STK-MED ONCE .ROUTE 09/08/20 13:43 09/08/20 13:43 DC Tramadol HCl (Ultram) 50 mg Q6H PRN PO PAIN 4 - 6 09/08/20 16:30 10/08/20 16:29 Tramadol HCl (Ultram) 100 mg Q6H PRN PO PAIN 7 - 10 09/08/20 16:30 10/08/20 16:29 Rivaroxaban (Xarelto) 10 mg DAILY PO 09/09/20 17:00 10/09/20 16:59 Docusate Sodium (Colace) 100 mg DAILY PO 09/09/20 09:00 10/09/20 08:59 Throat Lozenges (Cepacol Sore Throat Lozenge) 1 each PRN PRN MM SORE THROAT 09/08/20 16:30 10/08/20 16:29 Famotidine (Pepcid) 20 mg DAILY PO 09/09/20 09:00 10/09/20 08:59 Cefazolin Sodium/ Dextrose (Ancef 2 Gm/D5W 50ml) 2 gm Q8 IV 09/08/20 22:00 09/09/20 14:01 09/09/20 05:22 Acetaminophen (Tylenol) 1,000 mg Q6HR PO 09/08/20 18:00 10/08/20 17:59 Morphine Sulfate (Morphine Sulfate) 2 mg Q6HR PRN IV PAIN 7 - 10 09/08/20 16:30 10/08/20 16:29 Ondansetron HCl (Zofran) 4 mg Q4H PRN IV NAUSEA / VOMITING 09/08/20 16:30 10/08/20 16:29 Sodium Chloride 500 ml @ ud STK-MED ONCE IV 09/09/20 01:11 09/09/20 01:12 DC Sodium Chloride 500 ml @ 500 mls/hr OT IV 09/09/20 01:10 09/09/20 02:09 DC 09/09/20 01:23 Course Sepsis Screening Results: Posi: POSITIVE Sepsis Qualifier/Stage: SEPSIS RISK Vitals & review Data Vital Sign - Last 24 Hours 09/08/20 09/08/20 09/08/20 09/08/20 12:11 13:15 13:27 13:35 Pulse 90 104 89 Resp 16 16 16 B/P (MAP) 131/78 (95) 134/78 (96) 117/73 (88) Pulse Ox 99 99 99 O2 Delivery Room Air Nasal [place] Nasal Canula Nasal Canula O2 Flow Rate 2 2 2 09/08/20 09/08/20 09/08/20 09/08/20 16:21 16:27 16:32 16:37 Temp 97.5 Pulse 69 71 69 67 Resp 15 15 15 15 B/P (MAP) 118/71 (87) 104/63 (77) 93/60 (71) 90/56 (67) Pulse Ox 95 98 95 93 O2 Delivery Room Air Room Air Room Air Room Air 09/08/20 09/08/20 09/08/20 09/08/20 16:42 16:47 16:52 16:57 Pulse 74 75 66 70 Resp 15 15 15 16 B/P (MAP) 99/61 (74) 100/58 (72) 100/58 (72) 102/61 (75) Pulse Ox 96 93 92 97 O2 Delivery Room Air Room Air Room Air Nasal [place] O2 Flow Rate 4 09/08/20 09/08/20 09/08/20 09/08/20 17:02 17:07 17:12 17:17 Pulse 68 67 67 73 Resp 16 16 16 16 B/P (MAP) 112/59 (76) 104/88 (93) 96/60 (72) 100/59 (73) Pulse Ox 97 100 99 99 O2 Delivery Nasal [place] Nasal [place] Nasal Can[place] Nasal [place] O2 Flow Rate 4 2 2 2 09/08/20 09/08/20 09/08/20 09/08/20 17:22 17:27 17:55 17:55 Temp 97.3 97.9 Pulse 71 66 64 Resp 16 16 16 B/P (MAP) 102/67 (79) 105/64 (78) 95/58 (70) Pulse Ox 100 99 100 O2 Delivery Nasal [place] Nasal [place] O2 Flow Rate 2 2 2 09/08/20 09/08/20 09/08/20 09/08/20 17:55 18:36 20:21 21:00 Temp 97.9 96.3 Pulse 64 89 75 Resp 16 16 15 B/P (MAP) 95/58 (70) 86/50 (62) Pulse Ox 100 99 100 O2 Delivery Nasal [place] Room Air Nasal Cann[place] O2 Flow Rate 2 2.00 2.00 FiO2 28 09/09/20 09/09/20 09/09/20 01:30 06:01 07:51 Temp 96.1 97.9 97.5 Pulse 62 64 57 Resp 16 16 18 B/P (MAP) 81/48 (59) 97/61 (73) 136/76 (96) Pulse Ox 100 100 99 Intake and Output 09/09/20 06:59 Intake Total 6350 ml Output Total 730 ml Balance 5620 ml Laboratory Tests Test 09/08/20 10:55 09/08/20 12:30 09/08/20 16:40 09/08/20 20:25 White Blood Count 7.4 10^3/uL 9.9 10^3/uL Red Blood Count 4.10 10^6/uL 3.58 10^6/uL Hemoglobin 13.0 g/dL 11.9 g/dL 11.3 g/dL Hematocrit 39.7 % 39.7 % 35.5 % Mean Corpuscular Volume 96.8 fL 99.2 fL Mean Corpuscular Hemoglobin 31.7 pg 31.6 pg Mean Corpuscular Hemoglobin Concent 32.7 g/dL 31.8 g/dL Red Cell Distribution Width 13.5 % 13.5 % Platelet Count 186 10^3/uL 139 10^3/uL Mean Platelet Volume 9.3 fL 10.8 fL Neutrophils (%) (Auto) 83.2 % Lymphocytes (%) (Auto) 8.3 % Monocytes (%) (Auto) 8.2 % Neutrophils # (Auto) 6.1 10^3/uL Lymphocytes # (Auto) 0.61 10^3/uL1 Monocytes # (Auto) 0.6 10^3/uL Absolute Immature Granulocyte (auto 0.02 10^3 u/L Absolute Eosinophils (auto) 0.0 10^3/uL Immature Granulocytes % 0.30 % Eosinophils % 0.0 % Basophils % 0.3 % Basophils # 0.0 10^3/uL Sodium Level 142 mmol/L Potassium Level 4.2 mmol/L Chloride Level 105.0 mmol/L Carbon Dioxide Level 23.8 mmol/L Anion Gap 17.4 Blood Urea Nitrogen 12 mg/dL Creatinine 0.65 mg/dL Estimated GFR () 108.4 Est GFR (CKD-EPI)(Non-Afr Chinese) 89.6 BUN/Creatinine Ratio 18.0 Glucose Level 108 mg/dL Calcium Level 8.8 mg/dL Total Bilirubin 0.8 mg/dL Aspartate Amino Transf (AST/SGOT) 32 U/L Alanine Aminotransferase (ALT/SGPT) 21 U/L Alkaline Phosphatase 76 U/L Total Protein 7.1 g/dL Albumin 3.4 g/dL Globulin 3.7 Albumin/Globulin Ratio 0.918 Prothrombin Time 11.4 SEC Prothrombin Time INR (Non-Therap) 1.1 Activated Partial Thromboplast Time 23.5 SEC Test 09/09/20 04:30 White Blood Count 6.3 10^3/uL Red Blood Count 3.18 10^6/uL Hemoglobin 10.0 g/dL Hematocrit 31.6 % Mean Corpuscular Volume 99.4 fL Mean Corpuscular Hemoglobin 31.4 pg Mean Corpuscular Hemoglobin Concent 31.6 g/dL Red Cell Distribution Width 13.5 % Platelet Count 120 10^3/uL Mean Platelet Volume 10.4 fL Neutrophils (%) (Auto) 82.4 % Lymphocytes (%) (Auto) 8.1 % Monocytes (%) (Auto) 9.3 % Neutrophils # (Auto) 5.2 10^3/uL Lymphocytes # (Auto) 0.51 10^3/uL1 Monocytes # (Auto) 0.6 10^3/uL Absolute Immature Granulocyte (auto 0.01 10^3 u/L Absolute Eosinophils (auto) 0.0 10^3/uL Immature Granulocytes % 0.20 % Eosinophils % 0.0 % Basophils % 0.2 % Basophils # 0.0 10^3/uL Sodium Level 142 mmol/L Potassium Level 4.2 mmol/L Chloride Level 109.0 mmol/L Carbon Dioxide Level 27.4 mmol/L Glucose Level 104 mg/dL Blood Urea Nitrogen 10 mg/dL Creatinine 0.62 mg/dL Calcium Level 8.0 mg/dL Anion Gap 9.8 Estimated GFR () 114.5 Est GFR (CKD-EPI)(Non-Afr Chinese) 94.6 BUN/Creatinine Ratio 16.0 Current Medications Medications (Trade) Dose Ordered Sig/Rodolfo PRN Reason Start Time Stop Time Status Last Admin Acetaminophen (Tylenol) 1,000 mg Q6HR 09/08/20 18:00 10/08/20 17:59 Albuterol/ Ipratropium (Duo 0.5-3(2.5) Mg/3 ml) 3 ml RTQ2 PRN SHORTNESS OF BREATH 09/08/20 11:02 10/08/20 10:29 Cefazolin Sodium/ Dextrose (Ancef 2 Gm/D5W 50ml) 2 gm Q8 09/08/20 22:00 09/09/20 14:01 09/09/20 05:22 Docusate Sodium (Colace) 100 mg DAILY 09/09/20 09:00 10/09/20 08:59 Famotidine (Pepcid) 20 mg DAILY 09/09/20 09:00 10/09/20 08:59 Morphine Sulfate (Morphine Sulfate) 2 mg Q6HR PRN PAIN 7 - 10 09/08/20 16:30 10/08/20 16:29 Ondansetron HCl (Zofran) 4 mg Q4H PRN NAUSEA / VOMITING 09/08/20 16:30 10/08/20 16:29 Rivaroxaban (Xarelto) 10 mg DAILY 09/09/20 17:00 10/09/20 16:59 Throat Lozenges (Cepacol Sore Throat Lozenge) 1 each PRN PRN SORE THROAT 09/08/20 16:30 10/08/20 16:29 Tramadol HCl (Ultram) 50 mg Q6H PRN PAIN 4 - 6 09/08/20 16:30 10/08/20 16:29 Tramadol HCl (Ultram) 100 mg Q6H PRN PAIN 7 - 10 09/08/20 16:30 10/08/20 16:29 LEVEL 1 SEPSIS INFECTION CRITE: Recent Invasive Procedure Cardiovascular Evidence: Not Assessed or None Hematologic Evidence: None/Not assessed Hepatic Evidence: None/Not assessed Metabolic Evidence: None/Not assessed Neurological Evidence: Altered Mental Status Respiratory Evidence: None/Not assessed Renal Evidence: None/Not assessed O2 Sat by Pulse Oximetry: 98 Oxygen Flow Rate: 2.00 Assessment/Plan Assessment/Plan Assessment/Plan Plan X-ray of the knee, awaiting results Left arm cast Was placed Postoperative pain management, close monitoring of vital signs and pulse ox Continue currentMedications PT/OT eval and treat GI and DVT prophylaxis Case discussed with patient family Plan to be transferred back to behavioral health unit once the patient is medically clear Plan Plan X-ray of the knee, awaiting results Left arm cast Was placed Postoperative pain management, close monitoring of vital signs and pulse ox Continue currentMedications PT/OT eval and treat GI and DVT prophylaxis Case discussed with patient family Plan to be transferred back to behavioral health unit once the patient is medically clear MEAGAN DAMON MD Sep 11, 2020 10:43
--- NOTE | 2020-09-11 11:15 | PRM.PN ---
Subjective Subjective Date: Sep 11, 2020 Time: 09:00 Subjective Sitting up in bed, x-ray of the knee no acute fracture. VTE VTE Risk Total Score: 5 VTE Risk Score VTE Risk: Score 0-1 = Low Risk (Aggressive mobilization; early ambulation; no VTE prophylaxis required) Score 2: Moderate Risk (Intermittent/Pneumatic Compression Device OR Lovenox/Heparin/Coumadin) Score 3-4: High Risk (Intermittent/Pneumatic Compression Device AND Lovenox/Heparin/Coumadin) Score > or =5: Highest Risk (Intermittent/Pneumatic Compression Device AND Lovenox/Heparin/Coumadin) Antico:Hep/LMWH/Coum/Xarelto: Yes Mechanical device ordered: Yes Review of Systems Constitutional: No: Fever, Chills Eyes: No: Pain, Vision change ENT: No: Ear pain, Ear discharge Respiratory: No: Cough, Dry, Shortness of breath Cardiovascular: No: Chest Pain, Palpitations Gastrointestinal: No: Nausea, Vomiting Genitourinary: No Dysuria, No Frequency Musculoskeletal: other (Hip pain) Skin: Bruising (Knee); No: Jaundice Neurological: Weakness, Confusion, Other; No: Change in speech Allergies: Coded Allergies: banana (Verified Allergy, Unknown, 09/07/20) ciprofloxacin (Verified Allergy, Unknown, 09/07/20) wheat (Verified Allergy, Unknown, 09/07/20) No Active Prescriptions or Reported Meds Objective Vitals and I/O Vital Sign - Last 24 Hours 09/10/20 09/10/20 09/10/20 09/11/20 12:11 17:34 20:00 00:52 Temp 98.7 99.0 98.4 Pulse 90 100 99 Resp 18 18 17 B/P (MAP) 120/75 (90) 117/79 (92) 122/79 (93) Pulse Ox 93 99 98 O2 Delivery Room Air Room Air Room Air 09/11/20 09/11/20 01:20 04:23 Temp 97.6 Pulse 108 Resp 20 B/P (MAP) 140/84 (102) Pulse Ox 98 O2 Delivery Room Air Intake and Output 09/11/20 06:59 Intake Total 618 ml Output Total 1100 ml Balance -482 ml General: Alert, mild distress HEENT: Atraumatic, PERRLA Lungs: Clear to auscultation Heart: Regular rate, Normal S1, Normal S2 Abdomen: Normal bowel sounds, Soft, No tenderness Extremities: No clubbing, No cyanosis, Other (Hip tenderness, Left arm cast) Skin: Other (Postoperative hip, Bruising knee) Neuro: Normal speech, Normal tone Psych/Mental Status: Other (Unable to assess) All Results(Lab/Rad) Laboratory Tests Test 09/08/20 10:55 09/08/20 12:30 09/08/20 16:40 09/08/20 20:25 White Blood Count 7.4 10^3/uL 9.9 10^3/uL Red Blood Count 4.10 10^6/uL 3.58 10^6/uL Hemoglobin 13.0 g/dL 11.9 g/dL 11.3 g/dL Hematocrit 39.7 % 39.7 % 35.5 % Mean Corpuscular Volume 96.8 fL 99.2 fL Mean Corpuscular Hemoglobin 31.7 pg 31.6 pg Mean Corpuscular Hemoglobin Concent 32.7 g/dL 31.8 g/dL Red Cell Distribution Width 13.5 % 13.5 % Platelet Count 186 10^3/uL 139 10^3/uL Mean Platelet Volume 9.3 fL 10.8 fL Neutrophils (%) (Auto) 83.2 % Lymphocytes (%) (Auto) 8.3 % Monocytes (%) (Auto) 8.2 % Neutrophils # (Auto) 6.1 10^3/uL Lymphocytes # (Auto) 0.61 10^3/uL1 Monocytes # (Auto) 0.6 10^3/uL Absolute Immature Granulocyte (auto 0.02 10^3 u/L Absolute Eosinophils (auto) 0.0 10^3/uL Immature Granulocytes % 0.30 % Eosinophils % 0.0 % Basophils % 0.3 % Basophils # 0.0 10^3/uL Sodium Level 142 mmol/L Potassium Level 4.2 mmol/L Chloride Level 105.0 mmol/L Carbon Dioxide Level 23.8 mmol/L Anion Gap 17.4 Blood Urea Nitrogen 12 mg/dL Creatinine 0.65 mg/dL Estimated GFR () 108.4 Est GFR (CKD-EPI)(Non-Afr [place]) 89.6 BUN/Creatinine Ratio 18.0 Glucose Level 108 mg/dL Calcium Level 8.8 mg/dL Total Bilirubin 0.8 mg/dL Aspartate Amino Transf (AST/SGOT) 32 U/L Alanine Aminotransferase (ALT/SGPT) 21 U/L Alkaline Phosphatase 76 U/L Total Protein 7.1 g/dL Albumin 3.4 g/dL Globulin 3.7 Albumin/Globulin Ratio 0.918 Prothrombin Time 11.4 SEC Prothrombin Time INR (Non-Therap) 1.1 Activated Partial Thromboplast Time 23.5 SEC Test 09/09/20 04:30 White Blood Count 6.3 10^3/uL Red Blood Count 3.18 10^6/uL Hemoglobin 10.0 g/dL Hematocrit 31.6 % Mean Corpuscular Volume 99.4 fL Mean Corpuscular Hemoglobin 31.4 pg Mean Corpuscular Hemoglobin Concent 31.6 g/dL Red Cell Distribution Width 13.5 % Platelet Count 120 10^3/uL Mean Platelet Volume 10.4 fL Neutrophils (%) (Auto) 82.4 % Lymphocytes (%) (Auto) 8.1 % Monocytes (%) (Auto) 9.3 % Neutrophils # (Auto) 5.2 10^3/uL Lymphocytes # (Auto) 0.51 10^3/uL1 Monocytes # (Auto) 0.6 10^3/uL Absolute Immature Granulocyte (auto 0.01 10^3 u/L Absolute Eosinophils (auto) 0.0 10^3/uL Immature Granulocytes % 0.20 % Eosinophils % 0.0 % Basophils % 0.2 % Basophils # 0.0 10^3/uL Sodium Level 142 mmol/L Potassium Level 4.2 mmol/L Chloride Level 109.0 mmol/L Carbon Dioxide Level 27.4 mmol/L Glucose Level 104 mg/dL Blood Urea Nitrogen 10 mg/dL Creatinine 0.62 mg/dL Calcium Level 8.0 mg/dL Anion Gap 9.8 Estimated GFR () 114.5 Est GFR (CKD-EPI)(Non-Afr [place]) 94.6 BUN/Creatinine Ratio 16.0 Current Medications Medications (Trade) Dose Ordered Sig/Rodolfo Route PRN Reason Start Time Stop Time Status Last Admin Dose Admin Acetaminophen/ Hydrocodone Bitart (Taberg 5mg) 1 ea Q4H PRN PO PAIN 4 - 6 09/08/20 10:30 09/08/20 16:46 DC Morphine Sulfate (Morphine Sulfate) 2 mg Q4H PRN IV PAIN 7 - 10 09/08/20 10:30 09/08/20 16:46 DC 7/28/21 11:35 Albuterol Sulfate (Ventolin) 2.5 mg RTQ2 PRN IH SHORTNESS OF BREATH 09/08/20 10:30 09/08/20 11:04 DC Ipratropium [place] (Atrovent) 0.5 mg RTQ2 PRN IH SHORTNESS OF BREATH 09/08/20 10:30 09/08/20 11:02 DC Albuterol/ Ipratropium (Duo 0.5-3(2.5) Mg/3 ml) 3 ml RTQ2 PRN IH SHORTNESS OF BREATH 09/08/20 11:02 10/08/20 10:29 Morphine Sulfate (Morphine Sulfate) 2 mg STK-MED ONCE .ROUTE 09/08/20 11:34 09/08/20 11:34 DC Sodium Chloride (Sodium Chloride Irr Bottle) 1,000 ml STK-MED ONCE IR 09/08/20 12:07 09/08/20 12:07 DC Sterile Water (Water) 1,000 ml STK-MED ONCE .ROUTE 09/08/20 12:07 09/08/20 12:07 DC Sodium Chloride 250 ml @ ud STK-MED ONCE .ROUTE 09/08/20 12:07 09/08/20 12:07 DC Sodium Chloride (NS 3000ml Irr) 3,000 ml STK-MED ONCE IR 09/08/20 12:07 09/08/20 12:07 DC Lidocaine HCl (Lidocaine 2% Vial) 500 mg STK-MED ONCE .ROUTE 09/08/20 12:10 09/08/20 12:10 DC Ondansetron HCl (Zofran) 4 mg STK-MED ONCE .ROUTE 09/08/20 12:10 09/08/20 12:11 DC Morphine Sulfate (Morphine Sulfate) 2 mg STK-MED ONCE .ROUTE 09/08/20 12:12 09/08/20 12:12 DC Rocuronium [place] (Rocuronium [place]) 50 mg STK-MED ONCE IV 09/08/20 12:12 09/08/20 12:12 DC Succinylcholine Chloride (Quelicin) 200 mg STK-MED ONCE .ROUTE 09/08/20 12:12 09/08/20 12:12 DC Fentanyl Citrate (Sublimaze) 50 mcg STK-MED ONCE .ROUTE 09/08/20 12:13 09/08/20 12:13 DC Propofol (Diprivan) 200 mg STK-MED ONCE IV 09/08/20 12:13 09/08/20 12:14 DC Bupivacaine HCl (Sensorcaine-Mpf 0.25% Vial) 2.5 mg STK-MED ONCE .ROUTE 09/08/20 12:13 09/08/20 12:14 DC Tranexamic Acid (Tranexamic Acid) 1,000 mg STK-MED ONCE .ROUTE 09/08/20 12:14 09/08/20 12:14 DC Sodium Chloride 1,000 ml @ ud STK-MED ONCE .ROUTE 09/08/20 12:43 09/08/20 12:43 DC Sodium Chloride 100 ml @ ud STK-MED ONCE IV 09/08/20 13:42 09/08/20 13:43 DC Cefazolin Sodium (Ancef) 1 gm STK-MED ONCE .ROUTE 09/08/20 13:43 09/08/20 13:43 DC Tramadol HCl (Ultram) 50 mg Q6H PRN PO PAIN 4 - 6 09/08/20 16:30 10/08/20 16:29 Tramadol HCl (Ultram) 100 mg Q6H PRN PO PAIN 7 - 10 09/08/20 16:30 10/08/20 16:29 Rivaroxaban (Xarelto) 10 mg DAILY PO 09/09/20 17:00 10/09/20 16:59 Docusate Sodium (Colace) 100 mg DAILY PO 09/09/20 09:00 10/09/20 08:59 Throat Lozenges (Cepacol Sore Throat Lozenge) 1 each PRN PRN MM SORE THROAT 09/08/20 16:30 10/08/20 16:29 Famotidine (Pepcid) 20 mg DAILY PO 09/09/20 09:00 10/09/20 08:59 Cefazolin Sodium/ Dextrose (Ancef 2 Gm/D5W 50ml) 2 gm Q8 IV 09/08/20 22:00 09/09/20 14:01 09/09/20 05:22 Acetaminophen (Tylenol) 1,000 mg Q6HR PO 09/08/20 18:00 10/08/20 17:59 Morphine Sulfate (Morphine Sulfate) 2 mg Q6HR PRN IV PAIN 7 - 10 09/08/20 16:30 10/08/20 16:29 Ondansetron HCl (Zofran) 4 mg Q4H PRN IV NAUSEA / VOMITING 09/08/20 16:30 10/08/20 16:29 Sodium Chloride 500 ml @ ud STK-MED ONCE IV 09/09/20 01:11 09/09/20 01:12 DC Sodium Chloride 500 ml @ 500 mls/hr OT IV 09/09/20 01:10 09/09/20 02:09 DC 09/09/20 01:23 Assessment/Plan Assessment/Plan Assessment/Plan Plan Left arm cast Was placed Postoperative pain management, close monitoring of vital signs and pulse ox Continue currentMedications PT/OT eval and treat GI and DVT prophylaxis Case discussed with patient family Plan possible transfer back to behavioral health unit in a.m. if patient's condition remains stable, continue PT/OT. Plan Plan X-ray of the knee, awaiting results Left arm cast Was placed Postoperative pain management, close monitoring of vital signs and pulse ox Continue currentMedications PT/OT eval and treat GI and DVT prophylaxis Case discussed with patient family Plan to be transferred back to behavioral health unit once the patient is medically clear ELLIS RENO MD Sep 11, 2020 11:15
[2020-09-11 12:21] VITALS: BP 134/72
[2020-09-11 16:45] VITALS: BP 127/64
--- NOTE | 2020-09-11 16:51 | DIET.OP ---
Nutrition Asmt/Malnutrit 2-17 Actual Date of Review: Sep 09, 2020 Nutritional Screening: Malnutr/Diet Consult Diagnosis: hip fracture Pertinent Medical Hx/Surgical: delusional disorder Subjective Information: no updated wt to assess. Pt's po intake varies greatly 0-80%. possibility of being transfered back to [facility] tomorrow. Current Diet Order/Nutrition S: regular diet Pertinent Meds Current Medications Medications (Trade) Dose Ordered Sig/Rodolfo PRN Reason Start Time Stop Time Status Last Admin Acetaminophen (Tylenol) 1,000 mg Q6HR 09/08/20 18:00 10/08/20 17:59 09/10/20 00:55 Docusate Sodium (Colace) 100 mg DAILY 09/09/20 09:00 10/09/20 08:59 09/11/20 10:15 Famotidine (Pepcid) 20 mg DAILY 09/09/20 09:00 10/09/20 08:59 09/11/20 10:15 Morphine Sulfate (Morphine Sulfate) 2 mg Q6HR PRN PAIN 7 - 10 09/08/20 16:30 10/08/20 16:29 Ondansetron HCl (Zofran) 4 mg Q4H PRN NAUSEA / VOMITING 09/08/20 16:30 10/08/20 16:29 Rivaroxaban (Xarelto) 10 mg DAILY 09/09/20 17:00 10/09/20 16:59 09/11/20 10:15 Throat Lozenges (Cepacol Sore Throat Lozenge) 1 each PRN PRN SORE THROAT 09/08/20 16:30 10/08/20 16:29 Tramadol HCl (Ultram) 50 mg Q6H PRN PAIN 4 - 6 09/08/20 16:30 10/08/20 16:29 Tramadol HCl (Ultram) 100 mg Q6H PRN PAIN 7 - 10 09/08/20 16:30 10/08/20 16:29 09/09/20 10:45 Pertinent Labs Laboratory Tests Test 09/10/20 04:29 09/11/20 08:00 White Blood Count 6.4 10^3/uL 6.4 10^3/uL Red Blood Count 3.16 10^6/uL 3.12 10^6/uL Hemoglobin 10.1 g/dL 10.0 g/dL Hematocrit 30.5 % 30.2 % Mean Corpuscular Volume 96.5 fL 96.8 fL Mean Corpuscular Hemoglobin 32.0 pg 32.1 pg Mean Corpuscular Hemoglobin Concent 33.1 g/dL 33.1 g/dL Red Cell Distribution Width 13.3 % 13.4 % Platelet Count 123 10^3/uL 128 10^3/uL Mean Platelet Volume 10.4 fL 10.5 fL Neutrophils (%) (Auto) 69.9 % Lymphocytes (%) (Auto) 16.7 % Monocytes (%) (Auto) 8.9 % Neutrophils # (Auto) 4.5 10^3/uL Lymphocytes # (Auto) 1.07 10^3/uL1 Monocytes # (Auto) 0.6 10^3/uL Absolute Immature Granulocyte (auto 0.01 10^3 u/L Absolute Eosinophils (auto) 0.3 10^3/uL Immature Granulocytes % 0.20 % Eosinophils % 3.9 % Basophils % 0.6 % Basophils # 0.0 10^3/uL Sodium Level 141 mmol/L 141 mmol/L Potassium Level 4.1 mmol/L 3.6 mmol/L Chloride Level 105.0 mmol/L 107.0 mmol/L Carbon Dioxide Level 27.5 mmol/L 27.3 mmol/L Glucose Level 96 mg/dL 97 mg/dL Blood Urea Nitrogen 13 mg/dL 13 mg/dL Creatinine 0.71 mg/dL 0.53 mg/dL Calcium Level 8.5 mg/dL 8.2 mg/dL Anion Gap 12.6 10.3 Estimated GFR () 97.9 137.2 Est GFR (CKD-EPI)(Non-Afr [place]an) 80.9 113.4 BUN/Creatinine Ratio 18.0 24.0 Height (Feet): 5 Height (Inches): 3 Current Weight: 118 %IBW: 103 Recent Weight Change: Yes ( reports approx 40# decline over last 2 years.) Weight Status: Appropriate GI Symptoms: None Difficult in: Chewing (no teeth) Food Allergies: Yes (banana and wheat) Cultural/Ethnic/Baptism Peggy: none Usual Diet at Home: regular Skin Integrity/Comment: No BEE in Kcals: Use Current Weight Calories/Kcals/Kg: MSJ *1.2-1.4 Kcals Calculated: 3309-4902 kcal Protein: Use Current Weight Protein g/k-1.2 g/kg Protein Calculated: 53-64g Fluid: ml: 5678-1637 ml Nutritional Problem: Nutr. Problems Present Problems: unintentional wt loss Etiology: lack of teeth/difficulty chewing Signs/Symptoms: 40# decline over last [address] Comments: 1. Recommend minced and moist diet order. 2. Encourage po intake at each meal. 3. RD to monitor need for nutritional supplement 4. Daily wts Expected Outcomes 65-100% of most meals to meet 90-100% of nutrition needs the next 3-5 days. - not met, continue Discharge on regular diet Malnutrtion/Nutrition Risk Edu: No MD Notificiation Needed?: Yes (recommend minced and moist diet - pt with no teeth) Maribeth Cooper Sep 11, 2020 16:50
[2020-09-11 19:54] VITALS: BP 142/87
[2020-09-11 23:45] VITALS: BP 113/76
[2020-09-12 03:46] VITALS: BP 139/85
[2020-09-12] MEDS: D5W-1/2NS 1000ML 1,000 ML IV SCH ×2 (04:05→14:30)
--- NOTE | 2020-09-12 04:05 | NUR ---
REFUSAL PATIENT REFUSED IV INSERTION/IV FLUIDS. D5W 1/2NS. MED NON/ADMIN BY THIS NURSE.
[2020-09-12] MEDS: TYLENOL PO SCH ×3 (05:14→17:47)
--- NOTE | 2020-09-12 05:14 | NUR ---
TYLENOL TYLENOL 1000MG PO ORDERED FOR 09-12-20, PATIENT REFUSED MED.
--- NOTE | 2020-09-12 06:10 | NUR ---
DALE DC DALE DC'D AT THIS TIME, PATIENT DUE TO VOID BY 09-12-20 1400
[2020-09-12 06:33] LABS: MEAN CORP HGB 31.6 pg (26-34); RED CELL DISTRIBUTION WIDTH 13.4 % (11.5-14.5)
[2020-09-12 07:28] VITALS: BP 107/66
[2020-09-12] MEDS: XARELTO PO SCH (10:03)
[2020-09-12] MEDS: COLACE PO SCH (10:03)
[2020-09-12] MEDS: PEPCID PO SCH (10:04)
[2020-09-12 11:45] VITALS: BP 109/67
--- NOTE | 2020-09-12 13:50 | NUR ---
UPDATE PATIENT VOIDED WHILE SITTING IN CHAIR, NORMAL ODOR, NO DISCOLORATION. CLEANED PATIENT AND ASSISTED PATIENT TO BED VIA WALKED DAVY HASSAN ASSISTED. PATIENT DENIES FURTHER NEEDS AT THIS TIME. Addendum: 09/12/20 at 1720 by Jazmine Correa RN - Med/quantitative analyst developer TIME ON THIS NOT SHOULD BE 1550
--- NOTE | 2020-09-12 14:08 | PRM.PN ---
Subjective Subjective Date: Sep 12, 2020 Time: 14:06 Subjective Up in chair Pain ok VSS HGB 11.2 Ok to transfer to unit from my standpoint VTE VTE Risk Total Score: 5 VTE Risk Score VTE Risk: Score 0-1 = Low Risk (Aggressive mobilization; early ambulation; no VTE prophylaxis required) Score 2: Moderate Risk (Intermittent/Pneumatic Compression Device OR Lovenox/Heparin/Coumadin) Score 3-4: High Risk (Intermittent/Pneumatic Compression Device AND Lovenox/Heparin/Coumadin) Score > or =5: Highest Risk (Intermittent/Pneumatic Compression Device AND Lovenox/Heparin/Coumadin) Antico:Hep/LMWH/Coum/Xarelto: Yes Mechanical device ordered: Yes Review of Systems Constitutional: No: Fever, Chills Eyes: No: Pain, Vision change ENT: No: Ear pain, Ear discharge Respiratory: No: Cough, Dry, Shortness of breath Cardiovascular: No: Chest Pain, Palpitations Gastrointestinal: No: Nausea, Vomiting Genitourinary: No Dysuria, No Frequency Musculoskeletal: other (Hip pain) Skin: Bruising (Knee); No: Jaundice Neurological: Weakness, Confusion, Other; No: Change in speech Allergies: Coded Allergies: banana (Verified Allergy, Unknown, 09/07/20) ciprofloxacin (Verified Allergy, Unknown, 09/07/20) wheat (Verified Allergy, Unknown, 09/07/20) No Active Prescriptions or Reported Meds Objective Vitals and I/O Vital Sign - Last 24 Hours 09/11/20 09/11/20 09/11/20 09/11/20 16:45 18:04 19:54 21:16 Temp 97.4 98.2 Pulse 92 87 83 Resp 20 18 20 B/P (MAP) 127/64 (85) 142/87 (105) Pulse Ox 94 99 95 O2 Delivery Room Air Room Air 09/11/20 09/12/20 09/12/20 09/12/20 23:45 03:46 07:28 09:40 Temp 97.6 97.9 98.1 Pulse 114 114 103 Resp 20 20 16 B/P (MAP) 113/76 (88) 139/85 (103) 107/66 (80) Pulse Ox 93 97 99 O2 Delivery Room Air 09/12/20 09/12/20 09/12/20 11:03 11:04 11:45 Temp 97.1 Pulse 95 98 Resp 18 17 B/P (MAP) 109/67 (81) Pulse Ox 96 96 99 O2 Delivery Room Air Intake and Output 09/12/20 07:00 Output Total 2200 ml Balance -2200 ml General: Alert, mild distress HEENT: Atraumatic, PERRLA Lungs: Clear to auscultation Heart: Regular rate, Normal S1, Normal S2 Abdomen: Normal bowel sounds, Soft, No tenderness Extremities: No clubbing, No cyanosis, Other (Hip tenderness, Left arm cast) Skin: Other (Postoperative hip, Bruising knee) Neuro: Normal speech, Normal tone Psych/Mental Status: Other (Unable to assess) All Results(Lab/Rad) Laboratory Tests Test 09/08/20 10:55 09/08/20 12:30 09/08/20 16:40 09/08/20 20:25 White Blood Count 7.4 10^3/uL 9.9 10^3/uL Red Blood Count 4.10 10^6/uL 3.58 10^6/uL Hemoglobin 13.0 g/dL 11.9 g/dL 11.3 g/dL Hematocrit 39.7 % 39.7 % 35.5 % Mean Corpuscular Volume 96.8 fL 99.2 fL Mean Corpuscular Hemoglobin 31.7 pg 31.6 pg Mean Corpuscular Hemoglobin Concent 32.7 g/dL 31.8 g/dL Red Cell Distribution Width 13.5 % 13.5 % Platelet Count 186 10^3/uL 139 10^3/uL Mean Platelet Volume 9.3 fL 10.8 fL Neutrophils (%) (Auto) 83.2 % Lymphocytes (%) (Auto) 8.3 % Monocytes (%) (Auto) 8.2 % Neutrophils # (Auto) 6.1 10^3/uL Lymphocytes # (Auto) 0.61 10^3/uL1 Monocytes # (Auto) 0.6 10^3/uL Absolute Immature Granulocyte (auto 0.02 10^3 u/L Absolute Eosinophils (auto) 0.0 10^3/uL Immature Granulocytes % 0.30 % Eosinophils % 0.0 % Basophils % 0.3 % Basophils # 0.0 10^3/uL Sodium Level 142 mmol/L Potassium Level 4.2 mmol/L Chloride Level 105.0 mmol/L Carbon Dioxide Level 23.8 mmol/L Anion Gap 17.4 Blood Urea Nitrogen 12 mg/dL Creatinine 0.65 mg/dL Estimated GFR () 108.4 Est GFR (CKD-EPI)(Non-Afr [place] Ze[place]ander) 89.6 BUN/Creatinine Ratio 18.0 Glucose Level 108 mg/dL Calcium Level 8.8 mg/dL Total Bilirubin 0.8 mg/dL Aspartate Amino Transf (AST/SGOT) 32 U/L Alanine Aminotransferase (ALT/SGPT) 21 U/L Alkaline Phosphatase 76 U/L Total Protein 7.1 g/dL Albumin 3.4 g/dL Globulin 3.7 Albumin/Globulin Ratio 0.918 Prothrombin Time 11.4 SEC Prothrombin Time INR (Non-Therap) 1.1 Activated Partial Thromboplast Time 23.5 SEC Test 09/09/20 04:30 White Blood Count 6.3 10^3/uL Red Blood Count 3.18 10^6/uL Hemoglobin 10.0 g/dL Hematocrit 31.6 % Mean Corpuscular Volume 99.4 fL Mean Corpuscular Hemoglobin 31.4 pg Mean Corpuscular Hemoglobin Concent 31.6 g/dL Red Cell Distribution Width 13.5 % Platelet Count 120 10^3/uL Mean Platelet Volume 10.4 fL Neutrophils (%) (Auto) 82.4 % Lymphocytes (%) (Auto) 8.1 % Monocytes (%) (Auto) 9.3 % Neutrophils # (Auto) 5.2 10^3/uL Lymphocytes # (Auto) 0.51 10^3/uL1 Monocytes # (Auto) 0.6 10^3/uL Absolute Immature Granulocyte (auto 0.01 10^3 u/L Absolute Eosinophils (auto) 0.0 10^3/uL Immature Granulocytes % 0.20 % Eosinophils % 0.0 % Basophils % 0.2 % Basophils # 0.0 10^3/uL Sodium Level 142 mmol/L Potassium Level 4.2 mmol/L Chloride Level 109.0 mmol/L Carbon Dioxide Level 27.4 mmol/L Glucose Level 104 mg/dL Blood Urea Nitrogen 10 mg/dL Creatinine 0.62 mg/dL Calcium Level 8.0 mg/dL Anion Gap 9.8 Estimated GFR () 114.5 Est GFR (CKD-EPI)(Non-Afr [place]) 94.6 BUN/Creatinine Ratio 16.0 Current Medications Medications (Trade) Dose Ordered Sig/Rodolfo Route PRN Reason Start Time Stop Time Status Last Admin Dose Admin Acetaminophen/ Hydrocodone Bitart (Whiteside 5mg) 1 ea Q4H PRN PO PAIN 4 - 6 09/08/20 10:30 09/08/20 16:46 DC Morphine Sulfate (Morphine Sulfate) 2 mg Q4H PRN IV PAIN 7 - 10 09/08/20 10:30 09/08/20 16:46 DC 09/08/20 11:35 Albuterol Sulfate (Ventolin) 2.5 mg RTQ2 PRN IH SHORTNESS OF BREATH 09/08/20 10:30 09/08/20 11:04 DC Ipratropium [place] (Atrovent) 0.5 mg RTQ2 PRN IH SHORTNESS OF BREATH 09/08/20 10:30 09/08/20 11:02 DC Albuterol/ Ipratropium (Duo 0.5-3(2.5) Mg/3 ml) 3 ml RTQ2 PRN IH SHORTNESS OF BREATH 09/08/20 11:02 10/08/20 10:29 Morphine Sulfate (Morphine Sulfate) 2 mg STK-MED ONCE .ROUTE 09/08/20 11:34 09/08/20 11:34 DC Sodium Chloride (Sodium Chloride Irr Bottle) 1,000 ml STK-MED ONCE IR 09/08/20 12:07 09/08/20 12:07 DC Sterile Water (Water) 1,000 ml STK-MED ONCE .ROUTE 09/08/20 12:07 09/08/20 12:07 DC Sodium Chloride 250 ml @ ud STK-MED ONCE .ROUTE 09/08/20 12:07 09/08/20 12:07 DC Sodium Chloride (NS 3000ml Irr) 3,000 ml STK-MED ONCE IR 09/08/20 12:07 09/08/20 12:07 DC Lidocaine HCl (Lidocaine 2% Vial) 500 mg STK-MED ONCE .ROUTE 09/08/20 12:10 09/08/20 12:10 DC Ondansetron HCl (Zofran) 4 mg STK-MED ONCE .ROUTE 09/08/20 12:10 09/08/20 12:11 DC Morphine Sulfate (Morphine Sulfate) 2 mg STK-MED ONCE .ROUTE 09/08/20 12:12 09/08/20 12:12 DC Rocuronium [place]den (Rocuronium Belden) 50 mg STK-MED ONCE IV 09/08/20 12:12 09/08/20 12:12 DC Succinylcholine Chloride (Quelicin) 200 mg STK-MED ONCE .ROUTE 09/08/20 12:12 09/08/20 12:12 DC Fentanyl Citrate (Sublimaze) 50 mcg STK-MED ONCE .ROUTE 09/08/20 12:13 09/08/20 12:13 DC Propofol (Diprivan) 200 mg STK-MED ONCE IV 09/08/20 12:13 09/08/20 12:14 DC Bupivacaine HCl (Sensorcaine-Mpf 0.25% Vial) 2.5 mg STK-MED ONCE .ROUTE 09/08/20 12:13 09/08/20 12:14 DC Tranexamic Acid (Tranexamic Acid) 1,000 mg STK-MED ONCE .ROUTE 09/08/20 12:14 09/08/20 12:14 DC Sodium Chloride 1,000 ml @ ud STK-MED ONCE .ROUTE 09/08/20 12:43 09/08/20 12:43 DC Sodium Chloride 100 ml @ ud STK-MED ONCE IV 09/08/20 13:42 09/08/20 13:43 DC Cefazolin Sodium (Ancef) 1 gm STK-MED ONCE .ROUTE 09/08/20 13:43 09/08/20 13:43 DC Tramadol HCl (Ultram) 50 mg Q6H PRN PO PAIN 4 - 6 09/08/20 16:30 10/08/20 16:29 Tramadol HCl (Ultram) 100 mg Q6H PRN PO PAIN 7 - 10 09/08/20 16:30 10/08/20 16:29 Rivaroxaban (Xarelto) 10 mg DAILY PO 09/09/20 17:00 10/09/20 16:59 Docusate Sodium (Colace) 100 mg DAILY PO 09/09/20 09:00 10/09/20 08:59 Throat Lozenges (Cepacol Sore Throat Lozenge) 1 each PRN PRN MM SORE THROAT 09/08/20 16:30 10/08/20 16:29 Famotidine (Pepcid) 20 mg DAILY PO 09/09/20 09:00 10/09/20 08:59 Cefazolin Sodium/ Dextrose (Ancef 2 Gm/D5W 50ml) 2 gm Q8 IV 09/08/20 22:00 09/09/20 14:01 09/09/20 05:22 Acetaminophen (Tylenol) 1,000 mg Q6HR PO 09/08/20 18:00 10/08/20 17:59 Morphine Sulfate (Morphine Sulfate) 2 mg Q6HR PRN IV PAIN 7 - 10 09/08/20 16:30 10/08/20 16:29 Ondansetron HCl (Zofran) 4 mg Q4H PRN IV NAUSEA / VOMITING 09/08/20 16:30 10/08/20 16:29 Sodium Chloride 500 ml @ ud STK-MED ONCE IV 09/09/20 01:11 09/09/20 01:12 DC Sodium Chloride 500 ml @ 500 mls/hr OT IV 09/09/20 01:10 09/09/20 02:09 DC 09/09/20 01:23 Course Sepsis Screening Results: Posi: POSITIVE Sepsis Qualifier/Stage: SEPSIS RISK Vitals & review Data Vital Sign - Last 24 Hours 09/08/20 09/08/20 09/08/20 09/08/20 12:11 13:15 13:27 13:35 Pulse 90 104 89 Resp 16 16 16 B/P (MAP) 131/78 (95) 134/78 (96) 117/73 (88) Pulse Ox 99 99 99 O2 Delivery Room Air Nasal [place] Nasal Canula Nasal Canula O2 Flow Rate 2 2 2 09/08/20 09/08/20 09/08/20 09/08/20 16:21 16:27 16:32 16:37 Temp 97.5 Pulse 69 71 69 67 Resp 15 15 15 15 B/P (MAP) 118/71 (87) 104/63 (77) 93/60 (71) 90/56 (67) Pulse Ox 95 98 95 93 O2 Delivery Room Air Room Air Room Air Room Air 09/08/20 09/08/20 09/08/20 09/08/20 16:42 16:47 16:52 16:57 Pulse 74 75 66 70 Resp 15 15 15 16 B/P (MAP) 99/61 (74) 100/58 (72) 100/58 (72) 102/61 (75) Pulse Ox 96 93 92 97 O2 Delivery Room Air Room Air Room Air Nasal [place] O2 Flow Rate 4 09/08/20 09/08/20 09/08/20 09/08/20 17:02 17:07 17:12 17:17 Pulse 68 67 67 73 Resp 16 16 16 16 B/P (MAP) 112/59 (76) 104/88 (93) 96/60 (72) 100/59 (73) Pulse Ox 97 100 99 99 O2 Delivery Nasal [place] Nasal [place] Nasal [place] Nasal [place] O2 Flow Rate 4 2 2 2 09/08/20 09/08/20 09/08/20 09/08/20 17:22 17:27 17:55 17:55 Temp 97.3 97.9 Pulse 71 66 64 Resp 16 16 16 B/P (MAP) 102/67 (79) 105/64 (78) 95/58 (70) Pulse Ox 100 99 100 O2 Delivery Nasal [place] Nasal [place] O2 Flow Rate 2 2 2 09/08/20 09/08/20 09/08/20 09/08/20 17:55 18:36 20:21 21:00 Temp 97.9 96.3 Pulse 64 89 75 Resp 16 16 15 B/P (MAP) 95/58 (70) 86/50 (62) Pulse Ox 100 99 100 O2 Delivery Nasal [place] Room Air Nasal Cann[place] O2 Flow Rate 2 2.00 2.00 FiO2 28 09/09/20 09/09/20 09/09/20 01:30 06:01 07:51 Temp 96.1 97.9 97.5 Pulse 62 64 57 Resp 16 16 18 B/P (MAP) 81/48 (59) 97/61 (73) 136/76 (96) Pulse Ox 100 100 99 Intake and Output 09/09/20 06:59 Intake Total 6350 ml Output Total 730 ml Balance 5620 ml Laboratory Tests Test 09/08/20 10:55 09/08/20 12:30 09/08/20 16:40 09/08/20 20:25 White Blood Count 7.4 10^3/uL 9.9 10^3/uL Red Blood Count 4.10 10^6/uL 3.58 10^6/uL Hemoglobin 13.0 g/dL 11.9 g/dL 11.3 g/dL Hematocrit 39.7 % 39.7 % 35.5 % Mean Corpuscular Volume 96.8 fL 99.2 fL Mean Corpuscular Hemoglobin 31.7 pg 31.6 pg Mean Corpuscular Hemoglobin Concent 32.7 g/dL 31.8 g/dL Red Cell Distribution Width 13.5 % 13.5 % Platelet Count 186 10^3/uL 139 10^3/uL Mean Platelet Volume 9.3 fL 10.8 fL Neutrophils (%) (Auto) 83.2 % Lymphocytes (%) (Auto) 8.3 % Monocytes (%) (Auto) 8.2 % Neutrophils # (Auto) 6.1 10^3/uL Lymphocytes # (Auto) 0.61 10^3/uL1 Monocytes # (Auto) 0.6 10^3/uL Absolute Immature Granulocyte (auto 0.02 10^3 u/L Absolute Eosinophils (auto) 0.0 10^3/uL Immature Granulocytes % 0.30 % Eosinophils % 0.0 % Basophils % 0.3 % Basophils # 0.0 10^3/uL Sodium Level 142 mmol/L Potassium Level 4.2 mmol/L Chloride Level 105.0 mmol/L Carbon Dioxide Level 23.8 mmol/L Anion Gap 17.4 Blood Urea Nitrogen 12 mg/dL Creatinine 0.65 mg/dL Estimated GFR () 108.4 Est GFR (CKD-EPI)(Non-Afr [place]) 89.6 BUN/Creatinine Ratio 18.0 Glucose Level 108 mg/dL Calcium Level 8.8 mg/dL Total Bilirubin 0.8 mg/dL Aspartate Amino Transf (AST/SGOT) 32 U/L Alanine Aminotransferase (ALT/SGPT) 21 U/L Alkaline Phosphatase 76 U/L Total Protein 7.1 g/dL Albumin 3.4 g/dL Globulin 3.7 Albumin/Globulin Ratio 0.918 Prothrombin Time 11.4 SEC Prothrombin Time INR (Non-Therap) 1.1 Activated Partial Thromboplast Time 23.5 SEC Test 09/09/20 04:30 White Blood Count 6.3 10^3/uL Red Blood Count 3.18 10^6/uL Hemoglobin 10.0 g/dL Hematocrit 31.6 % Mean Corpuscular Volume 99.4 fL Mean Corpuscular Hemoglobin 31.4 pg Mean Corpuscular Hemoglobin Concent 31.6 g/dL Red Cell Distribution Width 13.5 % Platelet Count 120 10^3/uL Mean Platelet Volume 10.4 fL Neutrophils (%) (Auto) 82.4 % Lymphocytes (%) (Auto) 8.1 % Monocytes (%) (Auto) 9.3 % Neutrophils # (Auto) 5.2 10^3/uL Lymphocytes # (Auto) 0.51 10^3/uL1 Monocytes # (Auto) 0.6 10^3/uL Absolute Immature Granulocyte (auto 0.01 10^3 u/L Absolute Eosinophils (auto) 0.0 10^3/uL Immature Granulocytes % 0.20 % Eosinophils % 0.0 % Basophils % 0.2 % Basophils # 0.0 10^3/uL Sodium Level 142 mmol/L Potassium Level 4.2 mmol/L Chloride Level 109.0 mmol/L Carbon Dioxide Level 27.4 mmol/L Glucose Level 104 mg/dL Blood Urea Nitrogen 10 mg/dL Creatinine 0.62 mg/dL Calcium Level 8.0 mg/dL Anion Gap 9.8 Estimated GFR () 114.5 Est GFR (CKD-EPI)(Non-Afr [place]) 94.6 BUN/Creatinine Ratio 16.0 Current Medications Medications (Trade) Dose Ordered Sig/Rodolfo PRN Reason Start Time Stop Time Status Last Admin Acetaminophen (Tylenol) 1,000 mg Q6HR 09/08/20 18:00 10/08/20 17:59 Albuterol/ Ipratropium (Duo 0.5-3(2.5) Mg/3 ml) 3 ml RTQ2 PRN SHORTNESS OF BREATH 09/08/20 11:02 10/08/20 10:29 Cefazolin Sodium/ Dextrose (Ancef 2 Gm/D5W 50ml) 2 gm Q8 09/08/20 22:00 09/09/20 14:01 09/09/20 05:22 Docusate Sodium (Colace) 100 mg DAILY 09/09/20 09:00 10/09/20 08:59 Famotidine (Pepcid) 20 mg DAILY 09/09/20 09:00 10/09/20 08:59 Morphine Sulfate (Morphine Sulfate) 2 mg Q6HR PRN PAIN 7 - 10 09/08/20 16:30 10/08/20 16:29 Ondansetron HCl (Zofran) 4 mg Q4H PRN NAUSEA / VOMITING 09/08/20 16:30 10/08/20 16:29 Rivaroxaban (Xarelto) 10 mg DAILY 09/09/20 17:00 10/09/20 16:59 Throat Lozenges (Cepacol Sore Throat Lozenge) 1 each PRN PRN SORE THROAT 09/08/20 16:30 10/08/20 16:29 Tramadol HCl (Ultram) 50 mg Q6H PRN PAIN 4 - 6 09/08/20 16:30 10/08/20 16:29 Tramadol HCl (Ultram) 100 mg Q6H PRN PAIN 7 - 10 09/08/20 16:30 10/08/20 16:29 LEVEL 1 SEPSIS INFECTION CRITE: Recent Invasive Procedure LEVEL 2-SIRS (LIST ALL THAT AP: None/Not assessed Cardiovascular Evidence: Not Assessed or None Hematologic Evidence: None/Not assessed Hepatic Evidence: None/Not assessed Metabolic Evidence: None/Not assessed Neurological Evidence: Altered Mental Status Respiratory Evidence: None/Not assessed Renal Evidence: None/Not assessed O2 Sat by Pulse Oximetry: 99 Oxygen Flow Rate: 2.00 Assessment/Plan Assessment/Plan Assessment/Plan Plan Left arm cast Was placed Postoperative pain management, close monitoring of vital signs and pulse ox Continue currentMedications PT/OT eval and treat GI and DVT prophylaxis Case discussed with patient family Plan possible transfer back to behavioral health unit in a.m. if patient's con dition remains stable, continue PT/OT. Plan Plan Left arm cast Was placed Postoperative pain management, close monitoring of vital signs and pulse ox Continue currentMedications PT/OT eval and treat GI and DVT prophylaxis Case discussed with patient family Plan possible transfer back to behavioral health unit in a.m. if patient's condition remains stable, continue PT/OT. MEAGAN DAMON MD Sep 12, 2020 14:07
--- NOTE | 2020-09-12 15:00 | NUR ---
UPDATE NOTIFIED DR MAY REGARDING PATIENT WAS DUE TO VOID AND HAD NOT VOIDED AT THIS TIME AND DOMINGUEZ RN REPORTS PATIENT HAS HAD APPROX 400 ML ORAL INTAKE AND NO IV INTAKE. BLADDER SCANNER SHOWS 164 ML IN BLADDER. ALSO NOTIFIED DR MAY CATHETER WAS PLACED IN OR BEFORE SURGERY DUE TO STAFF COULD NOT GET CATHETER PLACED ON THE UNIT. DR MAY SAID TO RESCAN HER BLADDER IN AN HOUR.
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
--- NOTE | 2020-09-12 16:15 | NUR ---
UPDATE NOTIFIED DR MAY PATIENT VOIDED. RECEIVED ORDERS TO INCREASE ORAL INTAKE AND OBTAIN A UA.
[2020-09-12 16:17] VITALS: BP 97/64
[2020-09-12 19:45] VITALS: BP 93/60
[2020-09-13 00:20] VITALS: BP 105/68
[2020-09-13] MEDS: D5W-1/2NS 1000ML 1,000 ML IV SCH (00:30)
[2020-09-13] MEDS: TYLENOL PO SCH (02:37)
[2020-09-13 05:13] VITALS: BP 112/67
[2020-09-13 05:18] LABS: BASOPHIL % 0.4 % (0.0-0.2); EOSINOPHIL # 0.3 10^3/uL (0.0-0.2); EOSINOPHIL % 4.8 % (0.0-5.0); LYMPHOCYTES # 0.99 10^3/uL1 (1.0-4.8); MEAN CORP HGB 32.2 pg (26-34); MONOCYTES # 0.6 10^3/uL (0.3-0.8); MONOCYTES % 8.5 % (5.0-12.0); NEUTROPHIL # 5.1 10^3/uL (1.8-7.7); NEUTROPHILS % 72.3 % (41.0-85.0); PLATELET COUNT 191 10^3/uL (150-400); RED CELL DISTRIBUTION WIDTH 13.6 % (11.5-14.5)
[2020-09-13 05:49] LABS: CALCIUM 8.7 mg/dL (8.4-10.5); CARBON DIOXIDE 26.1 mmol/L (20.0-32)
[2020-09-13 08:04] VITALS: BP 131/93
[2020-09-13] MEDS: XARELTO PO SCH (08:31)
[2020-09-13] MEDS: PEPCID PO SCH (08:31)
[2020-09-13] MEDS: COLACE PO SCH (08:31)
--- NOTE | 2020-09-13 08:59 | PRM.PN ---
Subjective Subjective Date: Sep 13, 2020 Time: 08:50 Subjective patient resting in bed, confusion at baseline per nursing no events overnight VSS, labs reviewed stable left arm cast intact, left hip dressing hospitalist following VTE VTE Risk Score VTE Risk: Score 0-1 = Low Risk (Aggressive mobilization; early ambulation; no VTE prophylaxis required) Score 2: Moderate Risk (Intermittent/Pneumatic Compression Device OR Lovenox/Heparin/Coumadin) Score 3-4: High Risk (Intermittent/Pneumatic Compression Device AND Lovenox/Heparin/Coumadin) Score > or =5: Highest Risk (Intermittent/Pneumatic Compression Device AND Lovenox/Heparin/Coumadin) Review of Systems Constitutional: No: Fever, Chills, Sweats, Weakness, Malaise, Other ENT: No: Ear pain, Ear discharge, Nose pain, Nose discharge, Nose congestion, Mouth pain, Mouth swelling, Throat pain, Throat swelling, Other Respiratory: No: Cough, Dry, Shortness of breath, SOB with excertion, Wheezing, Hemoptysis, Pleuritic Pain, Sputum, Wheezing, Other Cardiovascular: No: Chest Pain, Palpitations, Orthopnea, Paroxysmal Noc. Dyspnea, Edema, Lt Headedness, Other Gastrointestinal: No: Nausea, Vomiting, Abdominal Pain, Diarrhea, Constipation, Melena, Hematochezia, Other Genitourinary: No Dysuria, No Frequency, No Incontinence, No Hematuria, No Retention, No Other Musculoskeletal: other (left arm fracture, cast intact. left hip dressing intact) Skin: No: Rash, Lesions, Jaundice, Bruising, Other Neurological: Confusion Allergies: Coded Allergies: banana (Verified Allergy, Unknown, 09/07/20) ciprofloxacin (Verified Allergy, Unknown, 09/07/20) wheat (Verified Allergy, Unknown, 09/07/20) No Active Prescriptions or Reported Meds Objective Vitals and I/O Vital Sign - Last 24 Hours 09/12/20 09/12/20 09/12/20 09/12/20 09:40 11:03 11:04 11:45 Temp 97.1 Pulse 95 98 Resp 18 17 B/P (MAP) 109/67 (81) Pulse Ox 96 96 99 O2 Delivery Room Air Room Air 09/12/20 09/12/20 09/12/20 09/12/20 16:17 17:16 19:45 21:40 Temp 98.4 97.8 Pulse 91 62 82 Resp 17 22 16 B/P (MAP) 97/64 (75) 93/60 (71) Pulse Ox 97 98 100 O2 Delivery Room Air Room Air 09/13/20 09/13/20 09/13/20 09/13/20 00:20 05:13 08:04 08:37 Temp 97.6 98.3 98.2 Pulse 82 85 98 Resp 16 17 18 B/P (MAP) 105/68 (80) 112/67 (82) 131/93 (106) Pulse Ox 100 97 99 O2 Delivery Room Air Intake and Output 09/13/20 07:00 Intake Total 340 ml Balance 340 ml General: No acute distress, Other (confusion, delusional) HEENT: Atraumatic, PERRLA, EOMI, Mucous membr. moist/pink Neck: Supple, No JVD Lungs: Clear to auscultation, Normal air movement Heart: Regular rate, Normal S1, Normal S2 Abdomen: Normal bowel sounds, Soft, No tenderness Extremities: No clubbing, No cyanosis, No edema, Normal pulses, Other (left arm cast) Skin: No rashes, No breakdown Neuro: Normal speech All Results(Lab/Rad) Laboratory Tests Test 09/13/20 04:39 White Blood Count 7.1 10^3/uL Red Blood Count 3.14 10^6/uL Hemoglobin 10.1 g/dL Hematocrit 30.9 % Mean Corpuscular Volume 98.4 fL Mean Corpuscular Hemoglobin 32.2 pg Mean Corpuscular Hemoglobin Concent 32.7 g/dL Red Cell Distribution Width 13.6 % Platelet Count 191 10^3/uL Mean Platelet Volume 9.9 fL Neutrophils (%) (Auto) 72.3 % Lymphocytes (%) (Auto) 14.0 % Monocytes (%) (Auto) 8.5 % Neutrophils # (Auto) 5.1 10^3/uL Lymphocytes # (Auto) 0.99 10^3/uL1 Monocytes # (Auto) 0.6 10^3/uL Absolute Immature Granulocyte (auto 0.01 10^3 u/L Absolute Eosinophils (auto) 0.3 10^3/uL Immature Granulocytes % 0.10 % Eosinophils % 4.8 % Basophils % 0.4 % Basophils # 0.0 10^3/uL Sodium Level 142 mmol/L Potassium Level 3.4 mmol/L Chloride Level 106.0 mmol/L Carbon Dioxide Level 26.1 mmol/L Anion Gap 13.3 Blood Urea Nitrogen 14 mg/dL Creatinine 0.59 mg/dL Estimated GFR () 121.2 Est GFR (CKD-EPI)(Non-Afr [place]) 100.2 BUN/Creatinine Ratio 23.0 Glucose Level 111 mg/dL Calcium Level 8.7 mg/dL Phosphorus Level 3.3 mg/dL Magnesium Level 1.7 mg/dL Total Bilirubin 0.7 mg/dL Aspartate Amino Transf (AST/SGOT) 57 U/L Alanine Aminotransferase (ALT/SGPT) 27 U/L Alkaline Phosphatase 74 U/L Total Protein 5.8 g/dL Albumin 2.3 g/dL Globulin 3.5 Albumin/Globulin Ratio 0.657 Procalcitonin < 0.05 ng/mL Current Medications Medications (Trade) Dose Ordered Sig/Rodolfo Route PRN Reason Start Time Stop Time Status Last Admin Dose Admin Acetaminophen/ Hydrocodone Bitart ([place] 5mg) 1 ea Q4H PRN PO PAIN 4 - 6 09/08/20 10:30 09/08/20 16:46 DC Morphine Sulfate (Morphine Sulfate) 2 mg Q4H PRN IV PAIN 7 - 10 09/08/20 10:30 09/08/20 16:46 DC 09/08/20 11:35 Albuterol Sulfate (Ventolin) 2.5 mg RTQ2 PRN IH SHORTNESS OF BREATH 09/08/20 10:30 09/08/20 11:04 DC Ipratropium [place] (Atrovent) 0.5 mg RTQ2 PRN IH SHORTNESS OF BREATH 09/08/20 10:30 09/08/20 11:02 DC Albuterol/ Ipratropium (Duo 0.5-3(2.5) Mg/3 ml) 3 ml RTQ2 PRN IH SHORTNESS OF BREATH 09/08/20 11:02 10/08/20 10:29 Morphine Sulfate (Morphine Sulfate) 2 mg STK-MED ONCE .ROUTE 09/08/20 11:34 09/08/20 11:34 DC Sodium Chloride (Sodium Chloride Irr Bottle) 1,000 ml STK-MED ONCE IR 09/08/20 12:07 09/08/20 12:07 DC Sterile Water (Water) 1,000 ml STK-MED ONCE .ROUTE 09/08/20 12:07 09/08/20 12:07 DC Sodium Chloride 250 ml @ ud STK-MED ONCE .ROUTE 09/08/20 12:07 09/08/20 12:07 DC Sodium Chloride (NS 3000ml Irr) 3,000 ml STK-MED ONCE IR 09/08/20 12:07 09/08/20 12:07 DC Lidocaine HCl (Lidocaine 2% Vial) 500 mg STK-MED ONCE .ROUTE 09/08/20 12:10 09/08/20 12:10 DC Ondansetron HCl (Zofran) 4 mg STK-MED ONCE .ROUTE 09/08/20 12:10 09/08/20 12:11 DC Morphine Sulfate (Morphine Sulfate) 2 mg STK-MED ONCE .ROUTE 09/08/20 12:12 09/08/20 12:12 DC Rocuronium [place] (Rocuronium [place]) 50 mg STK-MED ONCE IV 09/08/20 12:12 09/08/20 12:12 DC Succinylcholine Chloride (Quelicin) 200 mg STK-MED ONCE .ROUTE 09/08/20 12:12 09/08/20 12:12 DC Fentanyl Citrate (Sublimaze) 50 mcg STK-MED ONCE .ROUTE 09/08/20 12:13 09/08/20 12:13 DC Propofol (Diprivan) 200 mg STK-MED ONCE IV 09/08/20 12:13 09/08/20 12:14 DC Bupivacaine HCl (Sensorcaine-Mpf 0.25% Vial) 2.5 mg STK-MED ONCE .ROUTE 09/08/20 12:13 09/08/20 12:14 DC Tranexamic Acid (Tranexamic Acid) 1,000 mg STK-MED ONCE .ROUTE 09/08/20 12:14 09/08/20 12:14 DC Sodium Chloride 1,000 ml @ ud STK-MED ONCE .ROUTE 09/08/20 12:43 09/08/20 12:43 DC Sodium Chloride 100 ml @ ud STK-MED ONCE IV 09/08/20 13:42 09/08/20 13:43 DC Cefazolin Sodium (Ancef) 1 gm STK-MED ONCE .ROUTE 09/08/20 13:43 09/08/20 13:43 DC Tramadol HCl (Ultram) 50 mg Q6H PRN PO PAIN 4 - 6 09/08/20 16:30 10/08/20 16:29 Tramadol HCl (Ultram) 100 mg Q6H PRN PO PAIN 7 - 10 09/08/20 16:30 10/08/20 16:29 09/09/20 10:45 Rivaroxaban (Xarelto) 10 mg DAILY PO 09/09/20 17:00 10/09/20 16:59 09/13/20 08:31 Docusate Sodium (Colace) 100 mg DAILY PO 09/09/20 09:00 10/09/20 08:59 09/13/20 08:31 Throat Lozenges (Cepacol Sore Throat Lozenge) 1 each PRN PRN MM SORE THROAT 09/08/20 16:30 10/08/20 16:29 Famotidine (Pepcid) 20 mg DAILY PO 09/09/20 09:00 10/09/20 08:59 09/13/20 08:31 Cefazolin Sodium/ Dextrose (Ancef 2 Gm/D5W 50ml) 2 gm Q8 IV 09/08/20 22:00 09/09/20 14:01 DC 09/09/20 16:47 Acetaminophen (Tylenol) 1,000 mg Q6HR PO 09/08/20 18:00 10/08/20 17:59 09/13/20 02:37 Morphine Sulfate (Morphine Sulfate) 2 mg Q6HR PRN IV PAIN 7 - 09/08/20 16:30 10/08/20 16:29 Ondansetron HCl (Zofran) 4 mg Q4H PRN IV NAUSEA / VOMITING 09/08/20 16:30 10/08/20 16:29 Sodium Chloride 500 ml @ ud STK-MED ONCE IV 09/09/20 01:11 09/09/20 01:12 DC Sodium Chloride 500 ml @ 500 mls/hr OT IV 09/09/20 01:10 09/09/20 02:09 DC 09/09/20 01:23 Cefazolin Sodium/ Dextrose 50 ml @ ud STK-MED ONCE IV 09/09/20 16:34 09/09/20 16:35 DC Course Vitals & review Data Vital Sign - Last 24 Hours 09/12/20 09/12/20 09/12/20 8/1/21 09:40 11:03 11:04 11:45 Temp 97.1 Pulse 95 98 Resp 18 17 B/P (MAP) 109/67 (81) Pulse Ox 96 96 99 O2 Delivery Room Air Room Air 09/12/20 09/12/20 09/12/20 09/12/20 16:17 17:16 19:45 21:40 Temp 98.4 97.8 Pulse 91 62 82 Resp 17 22 16 B/P (MAP) 97/64 (75) 93/60 (71) Pulse Ox 97 98 100 O2 Delivery Room Air Room Air 09/13/20 09/13/20 09/13/20 09/13/20 00:20 05:13 08:04 08:37 Temp 97.6 98.3 98.2 Pulse 82 85 98 Resp 16 17 18 B/P (MAP) 105/68 (80) 112/67 (82) 131/93 (106) Pulse Ox 100 97 99 O2 Delivery Room Air Intake and Output 09/13/20 07:00 Intake Total 340 ml Balance 340 ml Laboratory Tests Test 09/12/20 06:20 09/13/20 04:39 White Blood Count 8.7 10^3/uL 7.1 10^3/uL Red Blood Count 3.54 10^6/uL 3.14 10^6/uL Hemoglobin 11.2 g/dL 10.1 g/dL Hematocrit 34.5 % 30.9 % Mean Corpuscular Volume 97.5 fL 98.4 fL Mean Corpuscular Hemoglobin 31.6 pg 32.2 pg Mean Corpuscular Hemoglobin Concent 32.5 g/dL 32.7 g/dL Red Cell Distribution Width 13.4 % 13.6 % Platelet Count 183 10^3/uL 191 10^3/uL Mean Platelet Volume 9.2 fL 9.9 fL Neutrophils (%) (Auto) 72.3 % Lymphocytes (%) (Auto) 14.0 % Monocytes (%) (Auto) 8.5 % Neutrophils # (Auto) 5.1 10^3/uL Lymphocytes # (Auto) 0.99 10^3/uL1 Monocytes # (Auto) 0.6 10^3/uL Absolute Immature Granulocyte (auto 0.01 10^3 u/L Absolute Eosinophils (auto) 0.3 10^3/uL Immature Granulocytes % 0.10 % Eosinophils % 4.8 % Basophils % 0.4 % Basophils # 0.0 10^3/uL Sodium Level 142 mmol/L Potassium Level 3.4 mmol/L Chloride Level 106.0 mmol/L Carbon Dioxide Level 26.1 mmol/L Anion Gap 13.3 Blood Urea Nitrogen 14 mg/dL Creatinine 0.59 mg/dL Estimated GFR () 121.2 Est GFR (CKD-EPI)(Non-Afr [place]) 100.2 BUN/Creatinine Ratio 23.0 Glucose Level 111 mg/dL Calcium Level 8.7 mg/dL Phosphorus Level 3.3 mg/dL Magnesium Level 1.7 mg/dL Total Bilirubin 0.7 mg/dL Aspartate Amino Transf (AST/SGOT) 57 U/L Alanine Aminotransferase (ALT/SGPT) 27 U/L Alkaline Phosphatase 74 U/L Total Protein 5.8 g/dL Albumin 2.3 g/dL Globulin 3.5 Albumin/Globulin Ratio 0.657 Procalcitonin < 0.05 ng/mL Assessment/Plan Assessment/Plan Problems: (1) Hip fracture Status: Acute ICD Code: S72.009A - Fracture of unspecified part of neck of unspecified femur, initial encounter for closed fracture SNOMED: 250496074 (2) Humerus fracture Status: Acute ICD Code: S42.309A - Unspecified fracture of shaft of humerus, unspecified arm, initial encounter for closed fracture SNOMED: 90602432 Plan Left hip fracture- Left hip bipolar hip replacement POD #4. Left humerus fracture- cast intact, no lifting objects continue medications as prescribed WBAT LLE, walker, monitor dressing. plan: [facility] may [facility] for [facility] management if ok with hospitalist per ortho Problem Qualifiers (1) Hip fracture: Encounter type: subsequent encounter Laterality: left Fracture healing: w ith routine healing (2) Humerus fracture: Encounter type: subsequent encounter Laterality: left PALMIRA BOSWELL NP Sep 13, 2020 08:59
[2020-09-13 12:41] VITALS: BP 135/82
[2020-09-13] MEDS ORDERED: Morphine Sulfate IV (15:21)
[2020-09-13] MEDS ORDERED: DOCU-15 PO (15:21)
[2020-09-13] MEDS ORDERED: ACET500T73 PO (15:21)
[2020-09-13] MEDS ORDERED: RIVA10TA PO (15:21)
[2020-09-13] MEDS ORDERED: FAMO20TA5 PO (15:21)
[2020-09-13] MEDS ORDERED: TRAM50TA PO (15:21)
[2020-09-13] MEDS ORDERED: IPRA3AMP25 IH (15:21)
--- NOTE | 2020-09-13 15:31 | PRM.DC ---
Subjective Subjective Date of Discharge: Sep 13, 2020 Time of Request to Discharge: 15:24 Subjective 70-year-old female with previous history of bronchial asthma delusional disorder and moderate protein calorie malnutrition was apparently had accidental fall and had left femoral neck fracture underwent Left hip arthroplasty and subsequently patient was able to walk with assistance and patient was cleared by orthopedic surgeon for discharge Exam Vital Signs Vital Signs Date Time Temp Pulse Resp B/P (MAP) Pulse Ox O2 Delivery O2 Flow Rate FiO2 09/13/20 12:41 97.9 89 19 135/82 (99) 99 09/13/20 09:02 Room Air 21 09/09/20 22:59 2.00 General Appearance: Alert, Cooperative, No acute distress HEENT: Atraumatic, PERRLA, EOMI Respiratory: Clear to auscultation, Normal air movement Cardiovascular: Regular rate, Normal S1, Normal S2 Abdominal: Normal bowel sounds, Soft, No tenderness, No hepatospenomegaly Extremities: Other (Left hip tenderness present in mild swelling of the lower extremity present) Neuro: Normal speech, Normal tone VTE VTE Risk Total Score: 5 VTE Risk Score VTE Risk: Score 0-1 = Low Risk (Aggressive mobilization; early ambulation; no VTE prophylaxis required) Score 2: Moderate Risk (Intermittent/Pneumatic Compression Device OR Lovenox/Heparin/Coumadin) Score 3-4: High Risk (Intermittent/Pneumatic Compression Device AND Lovenox/Heparin/Coumadin) Score > or =5: Highest Risk (Intermittent/Pneumatic Compression Device AND Lovenox/Heparin/Coumadin) Antico:Hep/LMWH/Coum/Xarelto: Yes Mechanical device ordered: Yes Objective Vitals and I/O Vital Sign - Last 24 Hours 09/12/20 09/12/20 09/12/20 09/12/20 16:17 17:16 19:45 21:40 Temp 98.4 97.8 Pulse 91 62 82 Resp 17 22 16 B/P (MAP) 97/64 (75) 93/60 (71) Pulse Ox 97 98 100 O2 Delivery Room Air Room Air 09/13/20 09/13/20 09/13/20 09/13/20 00:20 05:13 08:04 08:37 Temp 97.6 98.3 98.2 Pulse 82 85 98 Resp 16 17 18 B/P (MAP) 105/68 (80) 112/67 (82) 131/93 (106) Pulse Ox 100 97 99 O2 Delivery Room Air 09/13/20 09/13/20 09:02 12:41 Temp 97.9 Pulse 85 89 Resp 18 19 B/P (MAP) 135/82 (99) Pulse Ox 94 99 O2 Delivery Room Air FiO2 21 Intake and Output 09/13/20 07:00 Intake Total 340 ml Balance 340 ml General: No acute distress, Other (confusion, delusional) HEENT: Atraumatic, PERRLA, EOMI, Mucous membr. moist/pink Neck: Supple, No JVD Lungs: Clear to auscultation, Normal air movement Heart: Regular rate, Normal S1, Normal S2 Abdomen: Normal bowel sounds, Soft, No tenderness Extremities: No clubbing, No cyanosis, No edema, Normal pulses, Other (left arm cast) Skin: No rashes, No breakdown Neuro: Normal speech Psych/Mental Status: Other (Unable to assess) All Results(Lab/Rad) Laboratory Tests Test 09/13/20 04:39 White Blood Count 7.1 10^3/uL Red Blood Count 3.14 10^6/uL Hemoglobin 10.1 g/dL Hematocrit 30.9 % Mean Corpuscular Volume 98.4 fL Mean Corpuscular Hemoglobin 32.2 pg Mean Corpuscular Hemoglobin Concent 32.7 g/dL Red Cell Distribution Width 13.6 % Platelet Count 191 10^3/uL Mean Platelet Volume 9.9 fL Neutrophils (%) (Auto) 72.3 % Lymphocytes (%) (Auto) 14.0 % Monocytes (%) (Auto) 8.5 % Neutrophils # (Auto) 5.1 10^3/uL Lymphocytes # (Auto) 0.99 10^3/uL1 Monocytes # (Auto) 0.6 10^3/uL Absolute Immature Granulocyte (auto 0.01 10^3 u/L Absolute Eosinophils (auto) 0.3 10^3/uL Immature Granulocytes % 0.10 % Eosinophils % 4.8 % Basophils % 0.4 % Basophils # 0.0 10^3/uL Sodium Level 142 mmol/L Potassium Level 3.4 mmol/L Chloride Level 106.0 mmol/L Carbon Dioxide Level 26.1 mmol/L Anion Gap 13.3 Blood Urea Nitrogen 14 mg/dL Creatinine 0.59 mg/dL Estimated GFR () 121.2 Est GFR (CKD-EPI)(Non-Afr [place]) 100.2 BUN/Creatinine Ratio 23.0 Glucose Level 111 mg/dL Calcium Level 8.7 mg/dL Phosphorus Level 3.3 mg/dL Magnesium Level 1.7 mg/dL Total Bilirubin 0.7 mg/dL Aspartate Amino Transf (AST/SGOT) 57 U/L Alanine Aminotransferase (ALT/SGPT) 27 U/L Alkaline Phosphatase 74 U/L Total Protein 5.8 g/dL Albumin 2.3 g/dL Globulin 3.5 Albumin/Globulin Ratio 0.657 Procalcitonin < 0.05 ng/mL Current Medications Medications (Trade) Dose Ordered Sig/Rodolfo Route PRN Reason Start Time Stop Time Status Last Admin Dose Admin Acetaminophen/ Hydrocodone Bitart ([place] 5mg) 1 ea Q4H PRN PO PAIN 4 - 6 09/08/20 10:30 09/08/20 16:46 DC Morphine Sulfate (Morphine Sulfate) 2 mg Q4H PRN IV PAIN 7 - 10 09/08/20 10:30 09/08/20 16:46 DC 09/08/20 11:35 Albuterol Sulfate (Ventolin) 2.5 mg RTQ2 PRN IH SHORTNESS OF BREATH 09/08/20 10:30 09/08/20 11:04 DC Ipratropium [place] (Atrovent) 0.5 mg RTQ2 PRN IH SHORTNESS OF BREATH 09/08/20 10:30 09/08/20 11:02 DC Albuterol/ Ipratropium (Duo 0.5-3(2.5) Mg/3 ml) 3 ml RTQ2 PRN IH SHORTNESS OF BREATH 09/08/20 11:02 10/08/20 10:29 Morphine Sulfate (Morphine Sulfate) 2 mg STK-MED ONCE .ROUTE 09/08/20 11:34 09/08/20 11:34 DC Sodium Chloride (Sodium Chloride Irr Bottle) 1,000 ml STK-MED ONCE IR 09/08/20 12:07 09/08/20 12:07 DC Sterile Water (Water) 1,000 ml STK-MED ONCE .ROUTE 09/08/20 12:07 09/08/20 12:07 DC Sodium Chloride 250 ml @ ud STK-MED ONCE .ROUTE 09/08/20 12:07 09/08/20 12:07 DC Sodium Chloride (NS 3000ml Irr) 3,000 ml STK-MED ONCE IR 09/08/20 12:07 09/08/20 12:07 DC Lidocaine HCl (Lidocaine 2% Vial) 500 mg STK-MED ONCE .ROUTE 09/08/20 12:10 09/08/20 12:10 DC Ondansetron HCl (Zofran) 4 mg STK-MED ONCE .ROUTE 09/08/20 12:10 09/08/20 12:11 DC Morphine Sulfate (Morphine Sulfate) 2 mg STK-MED ONCE .ROUTE 09/08/20 12:12 09/08/20 12:12 DC Rocuronium [place] (Rocuronium [place]) 50 mg STK-MED ONCE IV 09/08/20 12:12 09/08/20 12:12 DC Succinylcholine Chloride (Quelicin) 200 mg STK-MED ONCE .ROUTE 09/08/20 12:12 09/08/20 12:12 DC Fentanyl Citrate (Sublimaze) 50 mcg STK-MED ONCE .ROUTE 09/08/20 12:13 09/08/20 12:13 DC Propofol (Diprivan) 200 mg STK-MED ONCE IV 09/08/20 12:13 09/08/20 12:14 DC Bupivacaine HCl (Sensorcaine-Mpf 0.25% Vial) 2.5 mg STK-MED ONCE .ROUTE 09/08/20 12:13 09/08/20 12:14 DC Tranexamic Acid (Tranexamic Acid) 1,000 mg STK-MED ONCE .ROUTE 09/08/20 12:14 09/08/20 12:14 DC Sodium Chloride 1,000 ml @ ud STK-MED ONCE .ROUTE 09/08/20 12:43 09/08/20 12:43 DC Sodium Chloride 100 ml @ ud STK-MED ONCE IV 09/08/20 13:42 09/08/20 13:43 DC Cefazolin Sodium (Ancef) 1 gm STK-MED ONCE .ROUTE 09/08/20 13:43 09/08/20 13:43 DC Tramadol HCl (Ultram) 50 mg Q6H PRN PO PAIN 4 - 6 09/08/20 16:30 10/08/20 16:29 Tramadol HCl (Ultram) 100 mg Q6H PRN PO PAIN 7 - 10 09/08/20 16:30 10/08/20 16:29 09/09/20 10:45 Rivaroxaban (Xarelto) 10 mg DAILY PO 09/09/20 17:00 10/09/20 16:59 09/13/20 08:31 Docusate Sodium (Colace) 100 mg DAILY PO 09/09/20 09:00 10/09/20 08:59 09/13/20 08:31 Throat Lozenges (Cepacol Sore Throat Lozenge) 1 each PRN PRN MM SORE THROAT 09/08/20 16:30 10/08/20 16:29 Famotidine (Pepcid) 20 mg DAILY PO 09/09/20 09:00 10/09/20 08:59 09/13/20 08:31 Cefazolin Sodium/ Dextrose (Ancef 2 Gm/D5W 50ml) 2 gm Q8 IV 09/08/20 22:00 09/09/20 14:01 DC 09/09/20 16:47 Acetaminophen (Tylenol) 1,000 mg Q6HR PO 09/08/20 18:00 10/08/20 17:59 09/13/20 02:37 Morphine Sulfate (Morphine Sulfate) 2 mg Q6HR PRN IV PAIN 7 - 10 09/08/20 16:30 10/08/20 16:29 Ondansetron HCl (Zofran) 4 mg Q4H PRN IV NAUSEA / VOMITING 09/08/20 16:30 10/08/20 16:29 Sodium Chloride 500 ml @ ud STK-MED ONCE IV 09/09/20 01:11 09/09/20 01:12 DC Sodium Chloride 500 ml @ 500 mls/hr OT IV 09/09/20 01:10 09/09/20 02:09 DC 09/09/20 01:23 Cefazolin Sodium/ Dextrose 50 ml @ ud STK-MED ONCE IV 09/09/20 16:34 09/09/20 16:35 DC Medication Reconciliation Scheduled Acetaminophen (Acetaminophen), 1,000 MG PO Q6HR Docusate Sodium (Easy-Lax), 100 MG PO DAILY Famotidine (Famotidine), 20 MG PO DAILY Rivaroxaban (Xarelto), 10 MG PO DAILY Scheduled PRN Ipratropium/Albuterol Sulfate (Iprat-Albut 0.5-3(2.5) Mg/3 Ml), 3 ML IH RTQ2 PRN for SHORTNESS OF BREATH Tramadol Hcl (Tramadol Hcl), 50 MG PO Q6H PRN for PAIN 4 - 6 [Morphine Sulfate], 2 MG IV Q6HR PRN for PAIN 7 - 10 Plan Assessment 1. Bronchial asthma 2. Delusional disorder 3. Moderate protein calorie malnutrition 4. Accidental fall s/p left femoral fracture and left hip arthroplasty Patient is tolerating p.o. intake well walk with assistance and patient is cleared for discharge by orthopedic surgeon she will be discharged to behavioral health unit in [facility] for further management of her delusional disorder and is stable condition Plan My Orders - MILTON FELTON MD Procedure Category Date Status Time Discharge DISCHARGE 09/13/20 Transmitted 15:16 Discharge to behavioral health unit in stable condition MILTON FELTON MD Sep 13, 2020 15:30
[2020-09-13 16:32] VITALS: BP 117/79
[2020-09-13 16:58] VITALS: BP 117/79
--- NOTE | 2020-09-13 16:58 | NUR ---
DISCHARGED DISCHARGE INSTRUCTIONS GIVEN TO PT AND SPOUSE, DISCHARGED TO [facility], DISCHARGED TO [facility] VIA W/C ACCOMPANIED BY NICOLE LOWE AND Rogelio NERI
== END 2020-09-13 17:20 | DRG 522 ==
LOC: MS 09:14
PROVIDERS: ADMIT Orthopaedic Surgery; ATTEND Internal Medicine
PROC: 0SRS019 Replacement of Left Hip Joint, Femoral Surface with Metal Synthetic Substitute, Cemented, Open Approach (ICD-10-PCS; principal; 2020-09-08 13:53)
PROC: 2W3BX2Z Immobilization of Left Upper Arm using Cast (ICD-10-PCS; 2020-09-10)
DX: S72.002A Fracture of unspecified part of neck of left femur, initial encounter for closed fracture (principal); S42.402A Unspecified fracture of lower end of left humerus, initial encounter for closed fracture; D62 Acute posthemorrhagic anemia; E44.0 Moderate protein-calorie malnutrition; F22 Delusional disorders; Z96.642 Presence of left artificial hip joint; M25.561 Pain in right knee; M17.10 Unilateral primary osteoarthritis, unspecified knee; J45.909 Unspecified asthma, uncomplicated; W19.XXXA Unspecified fall, initial encounter; Y93.89 Activity, other specified; Y92.89 Other specified places as the place of occurrence of the external cause; Y99.8 Other external cause status; Z68.20 Body mass index [BMI] 20.0-20.9, adult; Z88.1 Allergy status to other antibiotic agents
CPT/HCPCS: 36415; 71045; 73502; 73560; 76000; 80048; 80053; 83735; 84100; 84145; 85014; 85018; 85025; 85027; 85610; 85730; 86885; 86900; 86901; 86923; 93005; 97163; 97167; A4217; G0378; J0330; J0690; J1100; J2001; J2405; J3010; J3490; J7030; J7040; J7050; J7120; 73070-LT; 97530-GP; 97535-GO; A9270

== ENCOUNTER → 2020-10-20 | Outpatient (CLI) | payer MEDICARE ==
[~2020-10-20] MED LIST: ACET500T73 PO; CEFD300C2 PO; DOCU-15 PO; FAMO20TA5 PO; FLUO10CA13 PO; IPRA3AMP25 IH; MELA3TAB31 PO; MEMA5TAB PO; Morphine Sulfate IV; RISP1TAB45 PO; RIVA10TA PO; TRAM50TA PO
--- NOTE | 2020-10-20 14:10 | DIREP ---
PROCEDURE:XRAY ELBOW 2VWS-LT COMPARISON:[facility], , XRAY ELBOW 2VWS-LT, 09/08/2020, 06:04 PM. INDICATIONS:supracondylar fracture without intercondylar fracture of left humerus FINDINGS: BONES:Fracture involving the distal humerus, with periosteum reaction, indicating ongoing healing. Fracture line is obscured by overlying cast material. Alignment appears satisfactory JOINTS:Within normal limits, given overlying cast SOFT TISSUES:Normal. OTHER:Normal. CONCLUSION:Partial interval healing of fracture involving the distal humerus, satisfactory alignment. Dictated by: Ghassan Mejia MD on 10/20/2020 at 02:07 PM
--- NOTE | 2020-10-20 14:12 | DIREP ---
PROCEDURE:XRAY HIP MIN 2VW-LT COMPARISON:[facility], , XRAY HIP MIN 2VW-LT, 09/08/2020, 06:04 PM. INDICATIONS:Fracture of unspecified part of neck of left femur FINDINGS: BONES:Status post total left hip replacement. Hardware intact. Satisfactory alignment. JOINTS:Normal. SOFT TISSUES:Normal. OTHER:No additional findings. CONCLUSION:Satisfactory total left hip replacement Dictated by: Ghassan Mejia MD on 10/20/2020 at 02:09 PM
== END | disposition home or self-care (01) ==
LOC: RAD 08:58
PROVIDERS: ATTEND Orthopaedic Surgery
DX: S72.002A Fracture of unspecified part of neck of left femur, initial encounter for closed fracture (principal); S42.412A Displaced simple supracondylar fracture without intercondylar fracture of left humerus, initial encounter for closed fracture; X58.XXXA Exposure to other specified factors, initial encounter; Y92.89 Other specified places as the place of occurrence of the external cause; Y93.89 Activity, other specified; Y99.8 Other external cause status
CPT/HCPCS: 73502; 73070-LT

== ENCOUNTER → 2020-10-27 | Outpatient (CLI) | payer MEDICARE ==
--- NOTE | 2020-10-27 14:49 | DIREP ---
PROCEDURE:XRAY HIP MIN 2VW-RT COMPARISON:[facility], , XRAY HIP MIN 2VW-LT, 10/20/2020, 09:10 AM. INDICATIONS:M25.551 PAIN IN RIGHT HIP FINDINGS: BONES:No fracture is seen. JOINTS:A left total hip arthroplasty is in anatomic alignment. Only mild narrowing of the right hip joint space is seen. The sacroiliac joints appear normal. SOFT TISSUES:Normal. OTHER:No additional findings. CONCLUSION: 1. Mild osteoarthrosis of the right hip. 2. Left total hip arthroplasty in anatomic alignment. 3. No fracture is seen. Dictated by: Bruce Andrew M.D. on 10/27/2020 at 02:46 PM
== END | disposition home or self-care (01) ==
LOC: RAD 11:32
PROVIDERS: ATTEND Family Medicine
DX: M16.11 Unilateral primary osteoarthritis, right hip (principal); M25.551 Pain in right hip
CPT/HCPCS: 73502